=== PATIENT | female | born 1950 | race Caucasian/White ===

== ENCOUNTER 2019-09-23 19:28 | Inpatient (IN) | payer MEDICARE, OTHER ==
[2019-09-23] MEDS ORDERED: SODIUM CHLORIDE 0.9% 1,000 ML IV STA (19:40)
[2019-09-23] MEDS ORDERED: SODIUM CHLORIDE 0.9% 1,000 ML IV ONE (19:47)
[2019-09-23] MEDS ORDERED: ONDANSETRON 4 MG/2 ML VIAL IVP STA (19:54)
[2019-09-23 20:35] LABS: ALT 23 U/L (9-52); AST 23 U/L (14-36); African American GFR (CKD) >90 (>60 ml/min/1.73 sqM); Albumin 4.1 g/dL (3.5-5.0); Alkaline Phosphatase 101 U/L (38-126); Amylase 61 U/L (30-110); Anion Gap 14 mmol/L; Blood Urea Nitrogen 12 mg/dL (7-17); Carbon Dioxide 22 mmol/L (22-30); Chloride 102 mmol/L (98-107); Glucose 152 mg/dL (74-99); Potassium 3.6 mmol/L (3.5-5.1); Sodium 138 mmol/L (137-145); Total Bilirubin 0.7 mg/dL (0.2-1.3); Total Protein 7.2 g/dL (6.3-8.2)
[2019-09-23 20:38] LABS: Basophils % (A) 0 %; Eosinophils % (A) 0 %; HCT 40.8 % (34.0-46.0); HGB 14.1 gm/dL (11.4-16.0); Lymphocytes # (A) 0.7 k/uL (1.0-4.8); Lymphocytes % (A) 5 %; MCH 31.7 pg (25.0-35.0); MCHC 34.6 g/dL (31.0-37.0); MCV 91.7 fL (80.0-100.0); Mean Platelet Volume 5.6; Monocytes # (A) 0.6 k/uL (0-1.0); Monocytes % (A) 4 %; Neutrophils # (A) 12.7 k/uL (1.3-7.7); Neutrophils % (A) 90 %; Platelet Count 280 k/uL (150-450); RBC 4.45 m/uL (3.80-5.40); RDW 11.3 % (11.5-15.5); WBC 14.1 k/uL (3.8-10.6)
--- NOTE | 2019-09-23 20:43 | XR ---
EXAMINATION TYPE: XR chest 2V DATE OF EXAM: 09/23/2019 COMPARISON: NONE HISTORY: Nausea and vomiting TECHNIQUE: Frontal and lateral views of the chest are obtained. FINDINGS: Heart and mediastinum are normal. Lungs are clear. Diaphragm shows some flattening. There is slight blunting left costophrenic angle. Bony thorax is intact. IMPRESSION: There is some mild pleural reaction or fluid at the lateral left lung base. Normal heart .
--- NOTE | 2019-09-23 21:00 | ED ---
Nausea/Vomiting/Diarrhea HPI - General Chief complaint: Nausea/Vomiting/Diarrhea Stated complaint: poss dehydration Time Seen by Provider: 09/23/19 19:40 Source: patient Mode of arrival: ambulatory Limitations: no limitations - History of Present Illness Initial comments: 69-year-old fever presenting for vague complaints of epigastric discomfort, nausea vomiting times one day. Patient states that patient states about one week ago she felt ill she had chills and aches this lasted for 4 days. Patient states that she began feeling better eating and drinking and no longer felt general malaise. Patient states at 10:30 PM last night she began to develop indigestion she states she did epigastric discomfort. She denies any fevers leg swelling chest pain shortness of breath back pain denies any lower abdominal pain melena hematochezia. Patient states she has had some loose stools and had 4 episodes of vomiting today. Patient states she was concerned she is dehydrated as well as concerned about the epigastric pain and presented to the ER for evaluation. Upon arrival patient VS stable, nontoxic appearing no acute distress. - Related Data Home Medications Medication Instructions Recorded Confirmed Ibuprofen [Advil] 200 mg PO Q8HR PRN 09/23/19 09/23/19 Levothyroxine Sodium 25 mcg PO DAILY 09/23/19 09/23/19 Losartan [Cozaar] 25 mg PO DAILY 09/23/19 09/23/19 Allergies Allergy/AdvReac Type Severity Reaction Status Date / Time No Known Allergies Allergy Verified 09/23/19 22:11 Review of Systems ROS Statement: Those systems with pertinent positive or pertinent negative responses have been documented in the HPI. ROS Other: All systems not noted in ROS Statement are negative. Past Medical History Past Medical History: Hypertension, Thyroid Disorder History of Any Multi-Drug Resistant Organisms: None Reported Past Surgical History: Hysterectomy Additional Past Surgical History / Comment(s): left lumpectomy Past Psychological History: No Psychological Hx Reported Smoking Status: Never smoker Past Alcohol Use History: Occasional Past Drug Use History: None Reported General Exam - General Exam Comments Initial Comments: General: The patient is awake and alert, in no distress Eye: +3 mm pupils are equal, round and reactive to light, extra-ocular movements are intact. No nystagmus. There is normal conjunctiva bilaterally. No signs of icterus. Ears, nose, mouth and throat: There are moist mucous membranes and no oral lesions. Neck: The neck is supple, there is no tenderness or JVD. Cardiovascular: There is a regular rate and rhythm. No murmur, rub or gallop is appreciated. Respiratory: Lungs are clear to auscultation, respirations are non-labored, breath sounds are equal. No wheezes, stridor, rales, or rhonchi. Gastrointestinal: Soft, non-distended, mild tenderness to palpation of the epigastric and upper quadrants of the abdomen, the remaining abdomen is without tenderness, masses or organomegaly noted. There is no rebound or guarding present. No CVA tenderness. Bowel sounds are unremarkable. Musculoskeletal: Normal ROM, no tenderness. Strength 5/5. Sensation intact. Radial pulses equal bilaterally 2+. Neurological: A&O x 3. CN II-XII intact grossly, There are no obvious motor or sensory deficits. Coordination appears grossly intact. Speech is normal. Skin: Skin is warm and dry and no rashes or lesions are noted. No LE edema. Psychiatric: Cooperative, appropriate mood & affect, normal judgment. Limitations: no limitations Course Vital Signs 09/23/19 09/23/19 09/23/19 19:34 20:00 20:45 Temperature 97.9 F Pulse Rate 92 98 94 Pulse Rate [ Pulse Oximetery ] Respiratory 18 19 19 Rate Blood Pressure 144/85 173/89 168/76 Blood Pressure [Left Arm] O2 Sat by Pulse 96 98 97 Oximetry 09/23/19 09/23/19 22:47 23:00 Temperature 99.2 F Pulse Rate 99 Pulse Rate [ 85 Pulse Oximetery ] Respiratory 18 19 Rate Blood Pressure 176/86 Blood Pressure 183/79 [Left Arm] O2 Sat by Pulse 98 97 Oximetry Medical Decision Making - Medical Decision Making 61 female presenting for vague epigastric pain, vomiting loose stools. General malaise 4 days ago. Afebrile on arrival. Lipase (-). Chest x-ray reveals a pleural reaction. Mild elevation of troponin. EKG no St elevation/depression, nonspecific findings. Findings on ultrasound consistent with possible cholecystitis however patient has no Calles sign. Patient did have vomiting and diarrhea today elevation of white blood cell count. I discussed the case in detail and at length my attending provider, at this time is unclear patient's symptomology is from abdominal source or atypical chest pain vs viral syndrome affecting the myocardium. Patient was initially stared on heparin, however order cancelled by attending pending cardiology/admitting provider recommendation. Will trend troponin. Patient started on rocephin. Patient remains stable. No chest pain. Surgery on consult, patient wants Dr. Fuentes, refuses other surgeons. Patient admitted appearing well, discussing ddx, care plan--she is agreeable. - Lab Data Result diagrams: 09/23/19 20:11 09/23/19 20:11 Lab Results 09/23/19 09/23/19 09/23/19 Range/Units 20:11 20:11 20:11 WBC 14.1 H (3.8-10.6) k/uL RBC 4.45 (3.80-5.40) m/uL Hgb 14.1 (11.4-16.0) gm/dL Hct 40.8 (34.0-46.0) % MCV 91.7 (80.0-100.0) fL MCH 31.7 (25.0-35.0) pg MCHC 34.6 (31.0-37.0) g/dL RDW 11.3 L (11.5-15.5) % Plt Count 280 (150-450) k/uL Neutrophils % 90 % Lymphocytes % 5 % Monocytes % 4 % Eosinophils % 0 % Basophils % 0 % Neutrophils # 12.7 H (1.3-7.7) k/uL Lymphocytes # 0.7 L (1.0-4.8) k/uL Monocytes # 0.6 (0-1.0) k/uL Eosinophils # 0.0 (0-0.7) k/uL Basophils # 0.0 (0-0.2) k/uL PT (9.0-12.0) sec INR (<1.2) APTT (22.0-30.0) sec Sodium 138 (137-145) mmol/L Potassium 3.6 (3.5-5.1) mmol/L Chloride 102 (98-107) mmol/L Carbon Dioxide 22 (22-30) mmol/L Anion Gap 14 mmol/L BUN 12 (7-17) mg/dL Creatinine 0.43 L (0.52-1.04) mg/dL Est GFR (CKD-EPI)AfAm >90 (>60 ml/min/1.73 sqM) Est GFR (CKD-EPI)NonAf >90 (>60 ml/min/1.73 sqM) Glucose 152 H (74-99) mg/dL Calcium 9.0 (8.4-10.2) mg/dL Total Bilirubin 0.7 (0.2-1.3) mg/dL AST 23 (14-36) U/L ALT 23 (9-52) U/L Alkaline Phosphatase 101 (38-126) U/L Troponin I 0.039 H* (0.000-0.034) ng/mL Total Protein 7.2 (6.3-8.2) g/dL Albumin 4.1 (3.5-5.0) g/dL Amylase 61 (30-110) U/L Lipase 75 (23-300) U/L Urine Color Urine Appearance (Clear) Urine pH (5.0-8.0) Ur Specific Imperial (1.001-1.035) Urine Protein (Negative) Urine Glucose (UA) (Negative) Urine Ketones (Negative) Urine Blood (Negative) Urine Nitrite (Negative) Urine Bilirubin (Negative) Urine Urobilinogen (<2.0) mg/dL Ur Leukocyte Esterase (Negative) Urine RBC (0-5) /hpf Urine WBC (0-5) /hpf Urine Mucus (None) /hpf 09/23/19 09/23/19 Range/Units 20:11 21:22 WBC (3.8-10.6) k/uL RBC (3.80-5.40) m/uL Hgb (11.4-16.0) gm/dL Hct (34.0-46.0) % MCV (80.0-100.0) fL MCH (25.0-35.0) pg MCHC (31.0-37.0) g/dL RDW (11.5-15.5) % Plt Count (150-450) k/uL Neutrophils % % Lymphocytes % % Monocytes % % Eosinophils % % Basophils % % Neutrophils # (1.3-7.7) k/uL Lymphocytes # (1.0-4.8) k/uL Monocytes # (0-1.0) k/uL Eosinophils # (0-0.7) k/uL Basophils # (0-0.2) k/uL PT 9.9 (9.0-12.0) sec INR 0.9 (<1.2) APTT 24.0 (22.0-30.0) sec Sodium (137-145) mmol/L Potassium (3.5-5.1) mmol/L Chloride (98-107) mmol/L Carbon Dioxide (22-30) mmol/L Anion Gap mmol/L BUN (7-17) mg/dL Creatinine (0.52-1.04) mg/dL Est GFR (CKD-EPI)AfAm (>60 ml/min/1.73 sqM) Est GFR (CKD-EPI)NonAf (>60 ml/min/1.73 sqM) Glucose (74-99) mg/dL Calcium (8.4-10.2) mg/dL Total Bilirubin (0.2-1.3) mg/dL AST (14-36) U/L ALT (9-52) U/L Alkaline Phosphatase (38-126) U/L Troponin I (0.000-0.034) ng/mL Total Protein (6.3-8.2) g/dL Albumin (3.5-5.0) g/dL Amylase (30-110) U/L Lipase (23-300) U/L Urine Color Colorless Urine Appearance Clear (Clear) Urine pH 6.0 (5.0-8.0) Ur Specific Imperial 1.004 (1.001-1.035) Urine Protein Trace H (Negative) Urine Glucose (UA) Negative (Negative) Urine Ketones 1+ H (Negative) Urine Blood Moderate H (Negative) Urine Nitrite Negative (Negative) Urine Bilirubin Negative (Negative) Urine Urobilinogen <2.0 (<2.0) mg/dL Ur Leukocyte Esterase Negative (Negative) Urine RBC 29 H (0-5) /hpf Urine WBC 1 (0-5) /hpf Urine Mucus Rare H (None) /hpf - EKG Data EKG Comments: Ventricular rate 86 bpm, UT interval 132 ms, QRS confucianist 90 ms, QTC is QTC 410/490 ms. Normal sinus rhythm. T-wave flattening in lead ,[address] elevation or depression, QT prolongation noted EKG person interpreted and reviewed by my attending provider Disposition Clinical Impression: Elevated troponin, NSTEMI (non-ST elevated myocardial infarction), Nausea & vomiting, Epigastric discomfort Disposition: ADMITTED IP TO THIS HOSP Condition: Stable Is patient prescribed a controlled substance at d/c from ED?: No Time of Disposition: 21:19 Decision to Admit Reason: Admit from EC Decision Date: 09/23/19 Decision Time: 21:19
[2019-09-23] MEDS ORDERED: HEPARIN SODIUM,PORCINE 5,000 UNIT/ML 1 ML VIAL IV ONE (21:17)
[2019-09-23] MEDS ORDERED: HEPARIN SODIUM,PORCINE 5,000 UNIT/ML 1 ML VIAL IV PRN (21:17)
[2019-09-23] MEDS ORDERED: NITROGLYCERIN SL TABS 0.4 MG TAB SUBLINGUAL PRN ×2 (21:19→22:27)
[2019-09-23] MEDS ORDERED: HEPARIN SOD,PORK IN 0.45% NACL 25,000 UNIT in 0.45% NACL 1 250ML.BAG IV SCH (21:30)
[2019-09-23 21:39] LABS: INR 0.9 (<1.2); Prothrombin Time 9.9 sec (9.0-12.0)
[2019-09-23] MEDS ORDERED: ASPIRIN 325 MG TAB PO SCH (21:39)
--- NOTE | 2019-09-23 21:48 | US ---
EXAMINATION TYPE: US abdomen limited DATE OF EXAM: 09/23/2019 COMPARISON: NONE CLINICAL HISTORY: epigastric discomfort. Epigastric pain x 1 day. HTN. EXAM MEASUREMENTS: Liver Length: 14.0 cm Gallbladder Wall: 0.27 cm CBD: 0.66 cm Right Kidney: 10.6 x 4.8 x 5.3 cm *Limited due to gas Pancreas: appears wnl Liver: appears wnl Gallbladder: Multiple hyperechoic areas with posterior shadowing seen within the posterior portion o f the gallbladder. Gallbladder measures 9.45 cm in length. Evidence for sonographic Calles's sign: no CBD: appears to measure upper limits of normal vs. slightly dilated Right Kidney: Renal pelvis appears prominent vs minimal hydronephrosis IMPRESSION: There are numerous small gallstones. No dilated ducts. Mild gallbladder wall prominence. Gallbladder measures 4 cm in diameter. Cholecystitis is possible. Possible minimal right-sided hydronephrosis. No free fluid.
[2019-09-23] MEDS: SODIUM CHLORIDE 0.9% 1,000 ML IV SCH (22:09)
[2019-09-23 22:20] LABS: Appearance,Urine Clear (Clear); Bilirubin,Urine Negative (Negative); Blood,Urine Moderate (Negative); Color,Urine Colorless; Glucose,Urine (UA) Negative (Negative); Ketones,Urine 1+ (Negative); Leukocyte Esterase,Urine Negative (Negative); Mucus,Urine Rare /hpf; Nitrite,Urine Negative (Negative); Protein,Urine Trace (Negative); RBC,Urine 29 /hpf (0-5); Specific Gravity,Urine 1.004 (1.001-1.035); Urobilinogen,Urine <2.0 mg/dL (<2.0); WBC,Urine 1 /hpf (0-5)
[2019-09-23] MEDS ORDERED: ASPIRIN 81 MG PO STA (22:27)
[2019-09-24 03:01] LABS: Cholesterol 153 mg/dL (<200); HDL Cholesterol 52 mg/dL (40-60); LDL Cholesterol,Calculated 91 mg/dL (0-99); Triglycerides 48 mg/dL (<150)
[2019-09-24] MEDS: SODIUM CHLORIDE 0.9% 1,000 ML IV SCH ×3 (04:43→12:46)
[2019-09-24] MEDS: ASPIRIN 325 MG TAB PO SCH (08:25)
[2019-09-24] MEDS ORDERED: ASPIRIN 325 MG TAB PO SCH (09:00)
--- NOTE | 2019-09-24 09:07 | P.CRDCN ---
History of Present Illness Consult date: 09/24/19 Requesting physician: Dung Olguin Consult reason: chest pain Chief complaint: Epigastric discomfort and nausea History of present illness: This is a pleasant 69-year-old female with history of hypertension, hypothyroidism, nondiabetic, nonsmoker, no family history of premature coronary artery disease, presents to the hospital with symptoms of epigastric discomfort with radiation to the back area. Patient states that a week ago Saturday she had generalized aches and malaise, states that she stayed in bed for approximately 4 days. She had recovered from this, was eating normally. She states that she developed a discomfort in her mid epigastric area that radiated around to her back, subsequently patient became diaphoretic and had an episode of vomiting. She came to the emergency room for further evaluation and treatment. Approximately 2 years ago, as patient states she had very similar symptoms but also had an associated pressure and heaviness in the chest at that time, she went to [facility], states that she had a workup done there and everything came back negative. Patient also in between that time has had one minor similar episodes to this. Chest x-ray on presentation here showed some mild pleural reaction or fluid in the lateral left lung base. does have some tenderness on exam in the right upper quadrant and for this reason she underwent an ultrasound of the abdomen which revealed numerous small gallstones. No dilated ducts. Mild gallbladder wall prominence. Gallbladder measures 4 cm in diameter. Cholecystitis is possible. Possible minimal right-sided hydronephrosis. Her initial EKG on presentation here showed a normal sinus r hythm with nonspecific T-wave abnormality. Subsequent EKG showed normal sinus rhythm with T wave changes noted in the inferior leads and mild ST depression in the lateral leads. Blood pressure on arrival here 140/80 with a heart rate of 90, 96% on room air. I pressure this morning 150/68 with a heart rate in the 80s, 94% on room air. White blood cell count 14.1, hemoglobin 14.1, platelet count 280. Sodium 138, potassium 3.6, BUN 12 and creatinine 0.4. Troponins 0.039, 0.047, 0.034, 0.026. Amylase, lipase, AST, ALT, and alk phos are all normal. Cholesterol 153, LDL 91, triglycerides 48, HDL 52. Past Medical History Past Medical History: Hypertension, Thyroid Disorder History of Any Multi-Drug Resistant Organisms: None Reported Past Surgical History: Hysterectomy Additional Past Surgical History / Comment(s): left lumpectomy Past Psychological History: No Psychological Hx Reported Smoking Status: Never smoker Past Alcohol Use History: Occasional Past Drug Use History: None Reported Medications and Allergies Home Medications Medication Instructions Recorded Confirmed Type Ibuprofen [Advil] 200 mg PO Q8HR PRN 09/23/19 09/23/19 History Levothyroxine Sodium 25 mcg PO DAILY 09/23/19 09/23/19 History Losartan [Cozaar] 25 mg PO DAILY 09/23/19 09/23/19 History Allergies Allergy/AdvReac Type Severity Reaction Status Date / Time No Known Allergies Allergy Verified 09/23/19 22:11 Physical Exam Vitals: Vital Signs Temp Pulse Pulse Resp BP BP BP 09/24/19 08:00 98.8 F 88 16 150/69 09/24/19 03:43 98 F 88 18 175/72 09/23/19 23:00 99 19 176/86 09/23/19 22:47 99.2 F 85 18 183/79 09/23/19 20:45 94 19 168/76 09/23/19 20:00 98 19 173/89 09/23/19 19:34 97.9 F 92 18 144/85 Pulse Ox 09/24/19 08:00 94 L 09/24/19 03:43 97 09/23/19 23:00 97 09/23/19 22:47 98 09/23/19 20:45 97 09/23/19 20:00 98 09/23/19 19:34 96 Intake and Output 09/23/19 09/24/19 09/24/19 22:59 06:59 14:59 Intake Total 0 Output Total 700 Balance -700 0 Intake: Oral 0 Output: Urine 700 Other: Voiding Method Toilet # Voids 2 0 # Bowel Movements 0 Weight 55.792 kg 55.1 kg PHYSICAL EXAMINATION: GENERAL: 69-year-old female in no acute distress at the time of my examination HEENT: Head is atraumatic, normocephalic. Pupils equal, round. Sclera anict miky. Conjunctiva are clear. Mucous membranes of the mouth are moist. Neck is supple. There is no elevated jugular venous pressure. No carotid bruit is heard. HEART EXAMINATION: Heart S1, S2 normal. No murmur or gallop heard. CHEST EXAMINATION: Lungs are clear to auscultation and precussion. No chest wall tenderness is noted on palpation or with deep breathing. ABDOMEN: Soft, mild right upper quadrant tenderness on exam . Bowel sounds are heard. No organomegaly noted. EXTREMITIES: 2+ peripheral pulses with no evidence of peripheral edema and no calf tenderness noted. NEUROLOGIC patient is awake, alert and oriented 3 . . Results 09/23/19 20:11 09/23/19 20:11 Cardiac Enzymes 09/23/19 09/23/19 09/23/19 Range/Units 20:11 20:11 22:59 AST 23 (14-36) U/L Troponin I 0.039 H* 0.047 H* (0.000-0.034) ng/mL 09/24/19 09/24/19 Range/Units 02:32 07:52 AST (14-36) U/L Troponin I 0.034 0.026 (0.000-0.034) ng/mL Coagulation 09/23/19 Range/Units 20:11 PT 9.9 (9.0-12.0) sec APTT 24.0 (22.0-30.0) sec Lipids 09/24/19 Range/Units 02:32 Triglycerides 48 (<150) mg/dL Cholesterol 153 (<200) mg/dL HDL Cholesterol 52 (40-60) mg/dL CBC 09/23/19 Range/Units 20:11 WBC 14.1 H (3.8-10.6) k/uL RBC 4.45 (3.80-5.40) m/uL Hgb 14.1 (11.4-16.0) gm/dL Hct 40.8 (34.0-46.0) % Plt Count 280 (150-450) k/uL Comprehensive Metabolic Panel 09/23/19 Range/Units 20:11 Sodium 138 (137-145) mmol/L Potassium 3.6 (3.5-5.1) mmol/L Chloride 102 (98-107) mmol/L Carbon Dioxide 22 (22-30) mmol/L BUN 12 (7-17) mg/dL Creatinine 0.43 L (0.52-1.04) mg/dL Glucose 152 H (74-99) mg/dL Calcium 9.0 (8.4-10.2) mg/dL AST 23 (14-36) U/L ALT 23 (9-52) U/L Alkaline Phosphatase 101 (38-126) U/L Total Protein 7.2 (6.3-8.2) g/dL Albumin 4.1 (3.5-5.0) g/dL Current Medications Generic Name Dose Route Start Last Admin Trade Name Freq PRN Reason Stop Dose Admin Aspirin 325 mg 09/24/19 09:00 09/24/19 08:25 Aspirin PO 325 mg DAILY SHEFALI Administration Sodium Chloride 1,000 mls @ 100 mls/hr 09/23/19 20:00 09/24/19 08:27 Saline 0.9% IV 100 mls/hr .Q10H SHEFALI Administration Levothyroxine Sodium 25 mcg 09/24/19 09:00 Synthroid PO 0630 SHEFALI Losartan Potassium 25 mg 09/24/19 09:00 Cozaar PO DAILY SHEFALI Nitroglycerin 0.4 mg 09/23/19 22:27 Nitrostat SUBLINGUAL Q5M PRN Chest Pain Intake and Output 09/23/19 09/24/19 09/24/19 22:59 06:59 14:59 Intake Total 0 Output Total 700 Balance -700 0 Intake: Oral 0 Output: Urine 700 Other: Voiding Method Toilet # Voids 2 0 # Bowel Movements 0 Weight 55.792 kg 55.1 kg 09/23/19 20:11 09/23/19 20:11 EKG Interpretations (text) EKG shows a normal sinus rhythm with nonspecific ST-T wave changes Assessment and Plan Plan: Assessment and plan #1 chest discomfort with associated diaphoresis and vomiting, rule out possible acute coronary syndrome, possible myocarditis, possible cholecystitis. #2 hypertension #3 hypothyroidism Plan Ultrasound of the abdomen was performed which revealed numerous small gallstones with no dilated ducts, mild gallbladder wall, prominence, gallbladder measures 4 cm in diameter. Possible cholecystitis. AST, ALT, alk phos, amylase and lipase are normal. We will obtain an echocardiogram with Doppler study. Patient may need to undergo cardiac catheterization for further evaluation and treatment of underlying coronary artery disease. Further recommendations to follow. DNP note has been reviewed, I agree with a documented findings and plan of care. Patient was seen and examined.
[2019-09-24] MEDS ORDERED: SODIUM CHLORIDE 0.9% 1,000 ML in EMPTY BAG 1 BAG IV ONE (09:37)
[2019-09-24] MEDS ORDERED: ASPIRIN 325 MG TAB PO STA (09:37)
[2019-09-24] MEDS ORDERED: NITROGLYCERIN SL TABS 0.4 MG TAB SUBLINGUAL PRN (09:37)
[2019-09-24] MEDS ORDERED: ATORVASTATIN 80 MG TAB PO STA (09:37)
[2019-09-24] MEDS ORDERED: ALPRAZolam 0.5 MG TAB PO PRN (09:37)
[2019-09-24] MEDS ORDERED: ALPRAZolam 0.25 MG TAB PO PRN (09:37)
[2019-09-24] MEDS ORDERED: VERAPAMIL 2.5 MG/ML 2 ML AMP ONE (10:55)
[2019-09-24] MEDS ORDERED: LIDOCAINE 1% INJ 10MG/ML (20 ML MDV) ONE (10:55)
[2019-09-24] MEDS ORDERED: fentaNYL (PF) 50 MCG/ML 2 ML AMP ONE (11:24)
--- NOTE | 2019-09-24 11:32 | ECHOF ---
Referral Reason:abn trop MEASUREMENTS -------- HEIGHT: 162.6 cm WEIGHT: 54.9 kg BP: 150/69 RVIDd: 2.8 cm (< 3.3) IVSd: 0.9 cm (0.6 - 1.1) LVIDd: 3.9 cm (3.9 - 5.3) LVPWd: 1.0 cm (0.6 - 1.1) IVSs: 1.6 cm LVIDs: 1.8 cm LVPWs: 1.6 cm LAESV Index (A-L): 23.09 ml/m Ao Diam: 2.5 cm (2.0 - 3.7) AV Cusp: 1.8 cm (1.5 - 2.6) MV EXCURSION: 14.414 mm (> 18.000) MV EF SLOPE: 73 mm/s (70 - 150) EPSS: 0.2 cm MV E Jaciel: 0.74 m/s MV DecT: 138 ms MV A Jaciel: 0.74 m/s MV E/A Ratio: 0.99 AR PHT: 590 ms RAP: 5.00 mmHg RVSP: 37.26 mmHg FINDINGS -------- Sinus rhythm. This was a technically good study. The left ventricular size is normal. Left ventricular wall thickness is normal. There is normal g lobal left ventricular contractility. Overall left ventricular systolic function is normal with, an EF between 65 - 70 %. The diastolic filling pattern is normal for the age of the patient 12.02. The right ventricle is normal in size. Normal LA size by volume 22+/-6 ml/m2. RA appears enlarged. Interatrial and interventricular septum intact. The aortic valve is trileaflet and appears structurally normal. There is mild aortic regurgitation. There is no evidence of aortic stenosis. Mild mitral regurgitation is present. Mild tricuspid regurgitation present. There is mild pulmonary hypertension. The right ventricular systolic pressure, as measured by Doppler, is 37.26mmHg. There is no pulmonic regurgitation present. The aortic root size is normal. The hepatic veins are normal. There is no pericardial effusion. CONCLUSIONS -------- 1. Sinus rhythm. 2. This was a technically good study. 3. The left ventricular size is normal. 4. Left ventricular wall thickness is normal. 5. There is normal global left ventricular contractility. 6. Overall left ventricular systolic function is normal with, an EF between 65 - 70 %. 7. The diastolic filling pattern is normal for the age of the patient 12.02 8. The right ventricle is normal in size. 9. Normal LA size by volume 22+/-6 ml/m2. 10. RA appears enlarged. 11. Interatrial and interventricular septum intact. 12. The aortic valve is trileaflet and appears structurally normal. 13. There is mild aortic regurgitation. 14. There is no evidence of aortic stenosis. 15. Mild mitral regurgitation is present. 16. Mild tricuspid regurgitation present. 17. There is mild pulmonary hypertension. 18. The right ventricular systolic pressure, as measured by Doppler, is 37.26mmHg. 19. There is no pulmonic regurgitation present. 20. The aortic root size is normal. 21. The hepatic veins are normal. 22. There is no pericardial effusion. PERSONAL INVESTMENT ADVISER: Vicki Negrete RDCS
[2019-09-24] MEDS ORDERED: fentaNYL (PF) 50 MCG/ML 2 ML AMP IVP ONE (11:47)
[2019-09-24] MEDS ORDERED: HEPARIN SODIUM 1,000 UN/ML (10ML VL) ONE (11:47)
[2019-09-24] MEDS ORDERED: IV FLUID CONTINUATION 1,000 ML IV ONE (11:48)
[2019-09-24] MEDS ORDERED: MIDAZOLAM 2 MG/2 ML VIAL IVP ONE (11:48)
[2019-09-24] MEDS ORDERED: LIDOCAINE 1% INJ 10MG/ML (20 ML MDV) SQ ONE (11:50)
[2019-09-24] MEDS ORDERED: VERAPAMIL SYRINGE (5 MG/10 ML) INTRAARTER ONE (11:52)
[2019-09-24 11:54] LABS: Basophils # (A) 0.2 k/uL (0-0.2); Basophils % (A) 1 %; Eosinophils % (A) 0 %; HCT 39.8 % (34.0-46.0); Lymphocytes # (A) 1.1 k/uL (1.0-4.8); Lymphocytes % (A) 7 %; MCH 31.4 pg (25.0-35.0); MCHC 32.7 g/dL (31.0-37.0); Monocytes # (A) 0.8 k/uL (0-1.0); Monocytes % (A) 5 %; Neutrophils # (A) 13.9 k/uL (1.3-7.7); Neutrophils % (A) 87 %; Platelet Count 302 k/uL (150-450); RBC 4.14 m/uL (3.80-5.40); RDW 11.7 % (11.5-15.5)
[2019-09-24] MEDS ORDERED: HEPARIN SODIUM 1,000 UN/ML (10ML VL) IV ONE (11:54)
[2019-09-24] MEDS ORDERED: RX INFO: IV CONTRAST WAS GIVEN 1 EACH MISC MISCELLANE PRN (12:07)
[2019-09-24] MEDS ORDERED: IOPAMIDOL-370 125ML BTL INJ ONE (12:11)
--- NOTE | 2019-09-24 12:12 | P.CARDCATH ---
Date of Procedure: 09/24/19 Preoperative Diagnosis: Abnormal troponin and EKG, rule out ischemic heart disease Postoperative Diagnosis: Normal coronary arteries Procedure(s) Performed: Left heart catheterization without left ventriculography Description of Procedure: HISTORY: This is a 69-year-old female was admitted to the hospital with abdominal pain and was noted to have abnormal troponin values and EKGs. A cardiac catheterization is requested to rule out underlying ischemic heart disease. CONSENT:I have discussed the risks, benefits and alternative therapies for the above-mentioned procedure and for both sedation/analgesia as well as necessary blood product administration, if indicated, as they pertain to this patient. The patient has indicated understanding and acceptance of the risks and procedures discussed. PROCEDURE: Patient was brought to the lab in a fasting state. Patient was given some IV sedation. The right wrist is infiltrated with lidocaine and right radial artery was entered using Seldinger technique. A 6-Pashto catheter was left in place and selective coronary arteriography was performed. Patient tolerated the procedure well. TR band was applied for hemostasis. No immediate complications were noted and patient was transferred to [facility] in a stable condition Conscious Sedation: Versed 1mg Fentanyl 50 g Duration 17minutes HEMODYNAMICS: The aortic pressure is 110/70. The left ventricle end-diastolic p ressure was 8. There was no gradient across the aortic valve SELECTIVE CORONARY ARTERIOGRAPHY: LEFT MAIN: Normal length and free of any occlusive disease THE LEFT ANTERIOR DESCENDING CORONARY ARTERY:. This is a good caliber vessel giving rise to see several diagonal and septal branches. The LAD and branches are free of occlusive disease THE LEFT CIRCUMFLEX AND IS CORONARY ARTERY:. This is a good caliber vessel giving rise to good-sized OM branch. Free of any occlusive disease THE RIGHT CORONARY ARTERY:. This is a dominant vessel free of any occlusive disease LEFT VENTRICULOGRAPHY:. Not performed FINAL IMPRESSION:, Normal coronary arteries. Normal end-diastolic pressure PLAN: Maximum medical therapy. Further evaluation and treatment of abdominal pain as per surgeon PROGNOSIS: Good
[2019-09-24] MEDS: LEVOTHYROXINE 25 MCG TAB PO SCH (12:45)
[2019-09-24] MEDS: LOSARTAN 25 MG TAB PO SCH (12:45)
--- NOTE | 2019-09-24 13:47 | P.GSCN ---
<Patsy Karimi - Last Filed: 09/24/19 13:46> History of Present Illness Consult date: 09/24/19 Reason for Consult: Epigastric discomfort Requesting physician: Nallely Samaniego History of present illness: CHIEF COMPLAINT: Epigastric discomfort HISTORY OF PRESENT ILLNESS: 69-year-old female who presented to the emergency room with a chief complaint of epigastric discomfort. Patient states she has been having flulike symptoms over the past week. Yesterday she began having pain below bilateral ribs that radiated to her back. She reports nausea and vomiting yesterday. She also had some diarrhea yesterday. Patient examined this morning at the bedside. She currently is complaining of right upper quadrant pain. Nausea and vomiting have resolved. She reports having intolerance to fatty or greasy foods. PAST MEDICAL HISTORY: See list. PAST SURGICAL HISTORY: See list. SOCIAL HISTORY: No illicit drug use. REVIEW OF SYSTEMS: CONSTITUTIONAL: Denies fever or chills. HEENT: Denies blurred vision, vision changes, or eye pain. Denies hemoptysis CARDIOVASCULAR: Denies chest pain or pressure. RESPIRATORY: No shortness of breath. GASTROINTESTINAL: Refer to HPI for pertinent findings HEMATOLOGIC: Denies bleeding disorders. GENITOURINARY: Denies any blood in urine. SKIN: Denies pruitis. Denies rash. PHYSICAL EXAM: VITAL SIGNS: Reviewed. GENERAL: Well-developed in no acute distress. HEENT: No sclera icterus. Extraocular movements grossly intact. Moist buccal mucosa. Head is atraumatic, normocephalic. ABDOMEN: Soft. Nondistended. Tenderness with palpation to right upper quadrant. No peritoneal signs. NEUROLOGIC: Alert and oriented. Cranial nerves II through XII grossly intact. LABORATORY DATA: WBC 14.1. Hemoglobin 14.1. Platelet count 280. Total bilirubin 0.7. AST 23. ALT 23. IMAGING: Abdominal ultrasound: Numerous small gallstones. No dilated ducts. Mild gallbladder prominence. Gallbladder measures 4 cm in diameter. Cholecystitis is possible. ASSESSMENT: 1. Abdominal pain, nausea, vomiting 2. Cholelithiasis, possible cholecystitis 3. Elevated troponins PLAN: -Notified by Eladia Forde, cardiology DOUPER, that they would like to perform cardiac catheterization on patient this afternoon. She states they would like to know if Dr. Fuentes is wanting to do any intervention with patients gallbladder prior to cardiac cath. Patient examined at the bedside and case discussed with Dr. Fuentes. No surgical intervention for gallbladder at this time until cleared by cardiology. Agree to proceed with cardiac cath today. Notified Eladia Forde who states patient will be scheduled for cardiac cath this afternoon. -Begin Zosyn. Monitor WBC -After cardiac cath, recommend low fat diet -Further recommendations pending Nurse practitioner note has been reviewed by physician. Signing provider agrees with the documented findings, assessment, and plan of care. Past Medical History Past Medical History: Hypertension, Thyroid Disorder History of Any Multi-Drug Resistant Organisms: None Reported Past Surgical History: Hysterectomy Additional Past Surgical History / Comment(s): left lumpectomy Past Psychological History: No Psychological Hx Reported Smoking Status: Never smoker Past Alcohol Use History: Occasional Past Drug Use History: None Reported Medications and Allergies Home Medications Medication Instructions Recorded Confirmed Type Ibuprofen [Advil] 200 mg PO Q8HR PRN 09/23/19 09/23/19 History Levothyroxine Sodium 25 mcg PO DAILY 09/23/19 09/23/19 History Losartan [Cozaar] 25 mg PO DAILY 09/23/19 09/23/19 History Allergies Allergy/AdvReac Type Severity Reaction Status Date / Time No Known Allergies Allergy Verified 09/23/19 22:11 Surgical - Exam Vital Signs Temp Pulse Resp BP Pulse Ox 97.9 F 92 18 144/85 96 09/23/19 19:34 09/23/19 19:34 09/23/19 19:34 09/23/19 19:34 09/23/19 19:34 Results - Labs 09/24/19 02:32 09/23/19 20:11 Abnormal Lab Results - Last 24 Hours (Table) 09/23/19 09/23/19 09/23/19 Range/Units 20:11 20:11 20:11 WBC 14.1 H (3.8-10.6) k/uL RDW 11.3 L (11.5-15.5) % Neutrophils # 12.7 H (1.3-7.7) k/uL Lymphocytes # 0.7 L (1.0-4.8) k/uL Creatinine 0.43 L (0.52-1.04) mg/dL Glucose 152 H (74-99) mg/dL Troponin I 0.039 H* (0.000-0.034) ng/mL Urine Protein (Negative) Urine Ketones (Negative) Urine Blood (Negative) Urine RBC (0-5) /hpf Urine Mucus (None) /hpf 09/23/19 09/23/19 09/24/19 Range/Units 21:22 22:59 02:32 WBC 16.0 H (3.8-10.6) k/uL RDW (11.5-15.5) % Neutrophils # 13.9 H (1.3-7.7) k/uL Lymphocytes # (1.0-4.8) k/uL Creatinine (0.52-1.04) mg/dL Glucose (74-99) mg/dL Troponin I 0.047 H* (0.000-0.034) ng/mL Urine Protein Trace H (Negative) Urine Ketones 1+ H (Negative) Urine Blood Moderate H (Negative) Urine RBC 29 H (0-5) /hpf Urine Mucus Rare H (None) /hpf Diabetes panel 09/23/19 09/24/19 Range/Units 20:11 02:32 Sodium 138 (137-145) mmol/L Potassium 3.6 (3.5-5.1) mmol/L Chloride 102 (98-107) mmol/L Carbon Dioxide 22 (22-30) mmol/L BUN 12 (7-17) mg/dL Creatinine 0.43 L (0.52-1.04) mg/dL Glucose 152 H (74-99) mg/dL Calcium 9.0 (8.4-10.2) mg/dL AST 23 (14-36) U/L ALT 23 (9-52) U/L Alkaline Phosphatase 101 (38-126) U/L Total Protein 7.2 (6.3-8.2) g/dL Albumin 4.1 (3.5-5.0) g/dL Triglycerides 48 (<150) mg/dL HDL Cholesterol 52 (40-60) mg/dL Calcium panel 09/23/19 Range/Units 20:11 Calcium 9.0 (8.4-10.2) mg/dL Albumin 4.1 (3.5-5.0) g/dL Pituitary panel 09/23/19 Range/Units 20:11 Sodium 138 (137-145) mmol/L Potassium 3.6 (3.5-5.1) mmol/L Chloride 102 (98-107) mmol/L Carbon Dioxide 22 (22-30) mmol/L BUN 12 (7-17) mg/dL Creatinine 0.43 L (0.52-1.04) mg/dL Glucose 152 H (74-99) mg/dL Calcium 9.0 (8.4-10.2) mg/dL Adrenal panel 09/23/19 Range/Units 20:11 Sodium 138 (137-145) mmol/L Potassium 3.6 (3.5-5.1) mmol/L Chloride 102 (98-107) mmol/L Carbon Dioxide 22 (22-30) mmol/L BUN 12 (7-17) mg/dL Creatinine 0.43 L (0.52-1.04) mg/dL Glucose 152 H (74-99) mg/dL Calcium 9.0 (8.4-10.2) mg/dL Total Bilirubin 0.7 (0.2-1.3) mg/dL AST 23 (14-36) U/L ALT 23 (9-52) U/L Alkaline Phosphatase 101 (38-126) U/L Total Protein 7.2 (6.3-8.2) g/dL Albumin 4.1 (3.5-5.0) g/dL <Tej Fuentes - Last Filed: 09/24/19 18:38> History of Present Illness History of present illness: As above. Patient presents after having an episode 10 days ago where she experienced chills fatigue and anorexia for a four-day stretch. She said she started to feel better when her symptoms recurred earlier this week along with upper abdominal pain/indigestion. Pain radiated initially to the left upper qu adrant and the left side of her waist. It also became substernal at one point. White blood cell count elevated. Troponins were also elevated. Patient underwent cardiac workup including cardiac catheterization which was normal. Ultrasound showed gallstones and possibly gallbladder wall thickening. She says she has had 2 episodes similar to this in the past although not so severe. She is tender in the right mid abdomen on examination. Currently she has a tray of solid food in front of her and states she is not hungry. She has had episodes of vomiting that was bilious in nature. She is not nauseated currently. Low- grade fever last night. We'll schedule for CT abdomen and pelvis to rule out atypical pathology including peptic ulcer disease, appendicitis, diverticulitis. Assuming CAT scan shows no additional abnormalities Will proceed with laparoscopic, possible open cholecystectomy tomorrow. Risks of bleeding, infection, bile leak, bile duct injury, retained common bile duct stone, trocar injury, conversion to an open procedure, hernia, anesthesia related complications were reviewed. The patient understands and wishes to proceed. Continue antibiotics. Surgical - Exam Vital Signs Temp Pulse Resp BP Pulse Ox 97.9 F 92 18 144/85 96 09/23/19 19:34 09/23/19 19:34 09/23/19 19:34 09/23/19 19:34 09/23/19 19:34 Results - Labs 09/24/19 02:32 09/23/19 20:11 Abnormal Lab Results - Last 24 Hours (Table) 09/23/19 09/23/19 09/23/19 Range/Units 20:11 20:11 20:11 WBC 14.1 H (3.8-10.6) k/uL RDW 11.3 L (11.5-15.5) % Neutrophils # 12.7 H (1.3-7.7) k/uL Lymphocytes # 0.7 L (1.0-4.8) k/uL Creatinine 0.43 L (0.52-1.04) mg/dL Glucose 152 H (74-99) mg/dL Troponin I 0.039 H* (0.000-0.034) ng/mL Urine Protein (Negative) Urine Ketones (Negative) Urine Blood (Negative) Urine RBC (0-5) /hpf Urine Mucus (None) /hpf 09/23/19 09/23/19 09/24/19 Range/Units 21:22 22:59 02:32 WBC 16.0 H (3.8-10.6) k/uL RDW (11.5-15.5) % Neutrophils # 13.9 H (1.3-7.7) k/uL Lymphocytes # (1.0-4.8) k/uL Creatinine (0.52-1.04) mg/dL Glucose (74-99) mg/dL Troponin I 0.047 H* (0.000-0.034) ng/mL Urine Protein Trace H (Negative) Urine Ketones 1+ H (Negative) Urine Blood Moderate H (Negative) Urine RBC 29 H (0-5) /hpf Urine Mucus Rare H (None) /hpf Diabetes panel 09/23/19 09/24/19 Range/Units 20:11 02:32 Sodium 138 (137-145) mmol/L Potassium 3.6 (3.5-5.1) mmol/L Chloride 102 (98-107) mmol/L Carbon Dioxide 22 (22-30) mmol/L BUN 12 (7-17) mg/dL Creatinine 0.43 L (0.52-1.04) mg/dL Glucose 152 H (74-99) mg/dL Calcium 9.0 (8.4-10.2) mg/dL AST 23 (14-36) U/L ALT 23 (9-52) U/L Alkaline Phosphatase 101 (38-126) U/L Total Protein 7.2 (6.3-8.2) g/dL Albumin 4.1 (3.5-5.0) g/dL Triglycerides 48 (<150) mg/dL HDL Cholesterol 52 (40-60) mg/dL Calcium panel 09/23/19 Range/Units 20:11 Calcium 9.0 (8.4-10.2) mg/dL Albumin 4.1 (3.5-5.0) g/dL Pituitary panel 09/23/19 Range/Units 20:11 Sodium 138 (137-145) mmol/L Potassium 3.6 (3.5-5.1) mmol/L Chloride 102 (98-107) mmol/L Carbon Dioxide 22 (22-30) mmol/L BUN 12 (7-17) mg/dL Creatinine 0.43 L (0.52-1.04) mg/dL Glucose 152 H (74-99) mg/dL Calcium 9.0 (8.4-10.2) mg/dL Adrenal panel 09/23/19 Range/Units 20:11 Sodium 138 (137-145) mmol/L Potassium 3.6 (3.5-5.1) mmol/L Chloride 102 (98-107) mmol/L Carbon Dioxide 22 (22-30) mmol/L BUN 12 (7-17) mg/dL Creatinine 0.43 L (0.52-1.04) mg/dL Glucose 152 H (74-99) mg/dL Calcium 9.0 (8.4-10.2) mg/dL Total Bilirubin 0.7 (0.2-1.3) mg/dL AST 23 (14-36) U/L ALT 23 (9-52) U/L Alkaline Phosphatase 101 (38-126) U/L Total Protein 7.2 (6.3-8.2) g/dL Albumin 4.1 (3.5-5.0) g/dL
--- NOTE | 2019-09-24 17:01 | P.HPIM ---
History of Present Illness H&P Date: 09/24/19 Chief Complaint: Midepigastric/left rib cage pain, nausea, vomiting, diarrhea This is a pleasant 69-year-old nondiabetic female with medical history of hypertension, thyroid disorder, nonsmoker, presented to the ER with complaints of mid epigastric pain radiating to left rib cage and lower back. Patient reports a week ago, she developed chills, aches, malaise, no fevers.She stayed in bed and slept majority of this time, lasting 4 days. Recovered, regained normal diet intake. Saturday, consumed a cheeseburger,developed indigestion with significant mid epigastric pain radiating to left rib cage and to her lower back around midnight. Saturday morning, began having frequent nausea, vomiting and diarrhea, approximately 5 times accompanied by diaphoresis. Yellow Emesis with clear watery diarrhea. Denies exposure to anyone sick with a viral or influenza. 2 years ago had similar presentation, with a cardiac workup-she reports negative- completed at [facility]. Chest x-ray reporting mild pleural fluid at the lateral left lung base, slight blunting left costophrenic angle with some flattening of the diaphragm. Abdominal ultrasound reports numerous small gallstones, no dilated ducts, mild gallbladder wall prominence with possible cholecystitis, gallbladder measures 4 cm in diameter and 9.45 cm in length. EKG reported normal sinus rhythm, nonspecific T-wave abnormality, prolonged QT. Mild elevation of troponins; 0.039, 0.047, 0.034, 0.026. Triglycerides 48, cholesterol 153, LDL 91, HDL 52. Sodium 138, potassium 3.6, BUN 12, creatinine 0.43. LFTs, amylase, lipase within normal limits. UA reporting moderate blood, 1+ ketones, negative for leukocytes. T- max 99.5, WBC 14.1 on admission, further increased to 16 this morning. VSS. This morning pain currently complaining of mid epigastric and right upper quadrant. No nausea, vomiting and diarrhea resolved. Denies chest pain, palpitations or shortness of breath. Denies lightheadedness, dizziness or focal deficits. Received IV antibiotics of Rocephin in the ER, now on Zosyn, IV fluid hydration. Heparin drip initially started, then canceled in the ER as per admitting/ cardiology. Review of Systems ROS Statement: Those systems with pertinent positive or pertinent negative responses have been documented in the HPI. ROS Other: All systems not noted in ROS Statement are negative. Past Medical History Past Medical History: Hypertension, Thyroid Disorder History of Any Multi-Drug Resistant Organisms: None Reported Past Surgical History: Hysterectomy Additional Past Surgical History / Comment(s): left lumpectomy Past Psychological History: No Psychological Hx Reported Smoking Status: Never smoker Past Alcohol Use History: Occasional Past Drug Use History: None Reported Medications and Allergies Home Medications Medication Instructions Recorded Confirmed Type Ibuprofen [Advil] 200 mg PO Q8HR PRN 09/23/19 09/23/19 History Levothyroxine Sodium 25 mcg PO DAILY 09/23/19 09/23/19 History Losartan [Cozaar] 25 mg PO DAILY 09/23/19 09/23/19 History Allergies Allergy/AdvReac Type Severity Reaction Status Date / Time No Known Allergies Allergy Verified 09/23/19 22:11 Physical Exam Vitals: Vital Signs Temp Pulse Pulse Resp BP BP BP 09/24/19 08:00 98.8 F 88 16 150/69 09/24/19 03:43 98 F 88 18 175/72 09/23/19 23:00 99 19 176/86 09/23/19 22:47 99.2 F 85 18 183/79 09/23/19 20:45 94 19 168/76 09/23/19 20:00 98 19 173/89 09/23/19 19:34 97.9 F 92 18 144/85 Pulse Ox 09/24/19 08:00 94 L 09/24/19 03:43 97 09/23/19 23:00 97 09/23/19 22:47 98 09/23/19 20:45 97 09/23/19 20:00 98 09/23/19 19:34 96 Intake and Output 09/23/19 09/24/19 09/24/19 22:59 06:59 14:59 Intake Total 0 Output Total 700 Balance -700 0 Intake: Oral 0 Output: Urine 700 Other: Voiding Method Toilet # Voids 2 0 # Bowel Movements 0 Weight 55.792 kg 55.1 kg PHYSICAL EXAM: VITAL SIGNS: As above GENERAL: Sitting up in bed, no acute distress, HEENT: Pale, Flushed, Conjunctivae normal. eyes normal. NECK: No JVD. No thyroid enlargement. No LNs CARDIOVASCULAR: S1, S2 regular. No murmur, rub or gallop RESPIRATION: Breath sounds clear, diminished in the bases. No rhonchi or c rackles. No bronchial breathing. ABDOMEN: Soft, nondistended , right upper quadrant tenderness. No guarding. no masses palpable. No ascites, No hepatosplenomegaly.Bowel sounds heard. LEGS: No edema. no swelling. No clubbing, no cyanosis, no calf tenderness. PSYCHIATRY: Alert and oriented X3, mood and affect normal. NERVOUS SYSTEM: Cranial N 2-12 grossly normal. Moves all 4 limbs. Diffuse weak ness, No focal deficits. Strength and sensation grossly intact.. Skin: no lesions, no rash Joints: No active swelling. No inflammation. Lymphatic system. No LN neck axilla. Results CBC & Chem 7: 09/24/19 02:32 09/23/19 20:11 Labs: Abnormal Lab Results - Last 24 Hours (Table) 09/23/19 09/23/19 09/23/19 Range/Units 20:11 20:11 20:11 WBC 14.1 H (3.8-10.6) k/uL RDW 11.3 L (11.5-15.5) % Neutrophils # 12.7 H (1.3-7.7) k/uL Lymphocytes # 0.7 L (1.0-4.8) k/uL Creatinine 0.43 L (0.52-1.04) mg/dL Glucose 152 H (74-99) mg/dL Troponin I 0.039 H* (0.000-0.034) ng/mL Urine Protein (Negative) Urine Ketones (Negative) Urine Blood (Negative) Urine RBC (0-5) /hpf Urine Mucus (None) /hpf 09/23/19 09/23/19 Range/Units 21:22 22:59 WBC (3.8-10.6) k/uL RDW (11.5-15.5) % Neutrophils # (1.3-7.7) k/uL Lymphocytes # (1.0-4.8) k/uL Creatinine (0.52-1.04) mg/dL Glucose (74-99) mg/dL Troponin I 0.047 H* (0.000-0.034) ng/mL Urine Protein Trace H (Negative) Urine Ketones 1+ H (Negative) Urine Blood Moderate H (Negative) Urine RBC 29 H (0-5) /hpf Urine Mucus Rare H (None) /hpf Thrombosis Risk Factor Assmnt - Choose All That Apply Any of the Below Risk Factors Present?: No Other Risk Factors: Yes Each Risk Factor Represents 2 Points: Age 61-74 years Thrombosis Risk Factor Assessment Total Risk Factor Score: 2 Thrombosis Risk Factor Assessment Level: Low Risk Assessment and Plan Assessment: -Intractable nausea vomiting and diarrhea with Abdominal pain, possible acute cholecystitis -Mild elevated troponins with nonspecific T-wave abnormality per EKG, in a patient with mid epigastric pain, possible NSTEMI -Hypertension -Hypothyroidism Plan: Continue on current medication regime, monitoring and symptomatically treatment. IV fluid hydration. IV antibiotics of Zosyn. Echo ordered. GI and DVT prophylaxis in place with heparin subcu and Protonix IV push. Cardiology and surgery consult in place with recommendations pending. All meds have been reviewed and resumed accordingly. Further recommendations to follow. The impression and plan of care has been dictated as directed. : I performed a history and examination of this patient, discussed the same with the dictator. I agree with the dictator's note ,documented as a scribe. Any additional findings or plans will be noted.
[2019-09-24] MEDS: PIPERACILLIN-TAZOBACTAM 3.375 GM in SODIUM CHLORIDE 0.9% 100 ML IVPB SCH ×2 (18:04→22:38)
[2019-09-24] MEDS: PANTOPRAZOLE 40 MG/10 ML VIAL IVP SCH (18:04)
[2019-09-24] MEDS ORDERED: IOPAMIDOL CONTRAST (ORAL USE) VIAL PO PRN (18:34)
[2019-09-24] MEDS: IOPAMIDOL CONTRAST (ORAL USE) VIAL PO PRN ×2 (20:07→21:10)
[2019-09-24] MEDS: HEPARIN SODIUM,PORCINE 5,000 UNIT/ML 1 ML VIAL SQ SCH (21:54)
--- NOTE | 2019-09-24 22:10 | CT ---
EXAMINATION TYPE: CT abdomen pelvis wo con DATE OF EXAM: 09/24/2019 COMPARISON: None HISTORY: Epigastric pain, vomiting CT DLP: 398.7 mGycm Automated exposure control for dose reduction was used. TECHNIQUE: Helical acquisition of images was performed from the lung bases through the pelvis. FINDINGS: There is mild scarring and subsegmental atelectasis at the lung bases. Heart size is top normal. Stomach appears normal. There is dilated gallbladder with wall thickening. There are multiple calcifi cations in the deep and gallbladder. Gallbladder measures 4.5 cm in diameter. There is no discrete li donna mass. There are multiple low-density areas in the spleen. There is no evidence of pancreatic mass . There is moderate thickening of the descending duodenum. Wall measures up to 1.5 cm. There is no ad renal mass. Kidneys have normal size. There is right-sided perinephric fluid. There is 1.5 cm enlarge d left periaortic lymph node. Bladder distends smoothly. There is no inguinal hernia. There is no norman e fluid in the pelvis. There is no evidence of a bowel obstruction. There are multiple sigmoid divert icula. There is small amount of fluid in the right perirenal space. Lumbar vertebra show fairly normal spacing. There is no compression fracture. Bony pelvis is intact. IMPRESSION: THERE IS MINIMAL RIGHT-SIDED HYDRONEPHROSIS AND PERINEPHRIC FLUID THAT COULD RELATE TO PYELONEPHRITIS . NO OBSTRUCTING CALCULUS SEEN. RIGHT URETER IS NOT DILATED. DILATED GALLBLADDER WITH GALLSTONES AND WALL THICKENING CONSISTENT WITH CHOLECYSTITIS. THICKENING OF THE WALL OF THE DESCENDING DUODENUM CONSISTENT WITH INFLAMMATORY PROCESS.
[2019-09-25] MEDS: SODIUM CHLORIDE 0.9% 1,000 ML IV SCH ×6 (01:02→19:56)
[2019-09-25] MEDS: LEVOTHYROXINE 25 MCG TAB PO SCH ×2 (04:22→08:15)
[2019-09-25] MEDS: ASPIRIN 325 MG TAB PO SCH (08:15)
[2019-09-25] MEDS: LOSARTAN 25 MG TAB PO SCH (08:16)
[2019-09-25] MEDS: HEPARIN SODIUM,PORCINE 5,000 UNIT/ML 1 ML VIAL SQ SCH ×2 (08:31→19:56)
[2019-09-25] MEDS: PIPERACILLIN-TAZOBACTAM 3.375 GM in SODIUM CHLORIDE 0.9% 100 ML IVPB SCH ×3 (08:49→22:20)
[2019-09-25 08:58] LABS: HCT 35.1 % (34.0-46.0); MCH 32.1 pg (25.0-35.0); MCHC 34.2 g/dL (31.0-37.0); MCV 93.9 fL (80.0-100.0); Mean Platelet Volume 5.7; Platelet Count 266 k/uL (150-450); RBC 3.74 m/uL (3.80-5.40); RDW 11.5 % (11.5-15.5); WBC 16.9 k/uL (3.8-10.6)
[2019-09-25] MEDS: PANTOPRAZOLE 40 MG/10 ML VIAL IVP SCH (08:59)
[2019-09-25 09:10] LABS: African American GFR (CKD) >90 (>60 ml/min/1.73 sqM); Anion Gap 9 mmol/L; Blood Urea Nitrogen 7 mg/dL (7-17); Calcium 8.1 mg/dL (8.4-10.2); Carbon Dioxide 23 mmol/L (22-30); Chloride 105 mmol/L (98-107); Glucose 114 mg/dL (74-99); Potassium 3.3 mmol/L (3.5-5.1); Sodium 137 mmol/L (137-145)
[2019-09-25] MEDS ORDERED: SODIUM CHLORIDE 0.9% 1,000 ML IV ONE (12:25)
[2019-09-25] MEDS ORDERED: ONDANSETRON 4 MG/2 ML VIAL IVP ONE (12:44)
[2019-09-25] MEDS ORDERED: DEXAMETHASONE SOD PHOS (MDV) 100 MG/10 ML VIAL IVP ONE (12:44)
[2019-09-25] MEDS ORDERED: SCOPOLAMINE 1.5MG/72HR PATCH TRANSDERM ONE (12:45)
[2019-09-25] MEDS ORDERED: HEPARIN SODIUM,PORCINE 5,000 UNIT/ML 1 ML VIAL SQ ONE (13:03)
--- NOTE | 2019-09-25 13:03 | P.PN ---
Progress Note - Text Progress Note Date: 09/25/19 Patient says her pain today is improved. The patient's CAT scan last night was reviewed with Dr. Buenrostro. The patient's CAT scan shows impressive inflammation involving the lacy hepatis, duodenum, perinephric spaces. Questionable retroperitoneal lymph node as well. Last evening's CAT scan report raised the possibility of malignancy. Clinically the patient's presentation and exam is more consistent with acute likely gangrenous cholecystitis. Radiologist review this morning with me agrees that this is most likely inflammatory changes from the severe cholecystitis. This was reviewed with the patient and her . Recommend proceeding with laparoscopic, possible open cholecystectomy at this time. Risks of bleeding, infection, bile leak, bile duct injury, retained common bile duct stone, trocar injury, conversion to an open procedure, hernia, anesthesia related complications were reviewed. The patient understands and wishes to proceed.
[2019-09-25] MEDS ORDERED: fentaNYL (PF) 50 MCG/ML 2 ML AMP ONE (13:29)
[2019-09-25] MEDS ORDERED: PROPOFOL 10 MG/ML 20 ML VIAL IV ONE (13:29)
[2019-09-25] MEDS ORDERED: LIDOCAINE 1% INJ 10MG/ML (20 ML MDV) ONE (13:29)
[2019-09-25] MEDS ORDERED: MIDAZOLAM 2 MG/2 ML VIAL ONE (13:29)
[2019-09-25] MEDS ORDERED: ROCURONIUM BROMIDE 10 MG/ML 10 ML VIAL IV ONE (13:29)
[2019-09-25] MEDS ORDERED: PHENYLEPHRINE-0.9% NACL SYG 1 MG/10 ML SYRINGE ONE (13:29)
[2019-09-25] MEDS ORDERED: HYDROmorphone (PF) 1 MG/ML ONE (13:29)
[2019-09-25] MEDS ORDERED: GLYCOPYRROLATE 0.2 MG/ML 2 ML VIAL ONE (13:29)
[2019-09-25] MEDS ORDERED: NEOSTIGMINE 1 MG/ML 10 ML VIAL ONE (13:29)
[2019-09-25] MEDS ORDERED: BUPIVACAINE (PF) 0.25% 30 ML VIAL SQ ONE (13:59)
[2019-09-25] MEDS ORDERED: LACTATED RINGERS 1,000 ML IV ONE (14:44)
[2019-09-25] MEDS ORDERED: Potassium Replacement Protocol 1 EACH MISC MISCELLANE PRN ×2 (14:46→16:45)
[2019-09-25] MEDS ORDERED: HYDROmorphone 1 MG/ML 1 ML SYRINGE IVP PRN (15:37)
--- NOTE | 2019-09-25 15:44 | P.OP ---
Date of Procedure: 09/25/19 Procedure(s) Performed: PREOPERATIVE DIAGNOSIS: Acute cholecystitis POSTOPERATIVE DIAGNOSIS: Same PROCEDURE: Diagnostic laparoscopy, open cholecystectomy SURGEON: Gina EBL: 50 mL ANESTHESIA: Gen. COMPLICATIONS: None OPERATIVE PROCEDURE: The patient was brought and placed on the operating room table in the supine position. The patient was placed under general anesthesia at that time. The abdomen was prepped and draped in the usual sterile fashion. During palpation of the abdomen after anesthesia the region of the gallbladder was firm to palpation. A small vertical infraumbilical incision was made. The fascia was grasped with the Khoa forceps. The fascia was retracted anteriorly. The Veress needle was advanced into the peritoneal cavity. The saline drop test was normal. Insufflation took place up to 15 mmHg. A 5 mm optical trocar was advanced and the peritoneal cavity. A 12 mm trocar was advanced into the epigastric incision site. The patient had dense adhesions in the right upper quadrant. There was some purulent fluid seen adjacent to the inferior aspect of the right lobe of the liver and also where the distal stomach was adherent to the falciform ligament. I was able to bluntly dissect with my pusher to reveal a distended inflamed gallbladder. Thankfully this did not ap pear to be a malignant process and seemed consistent with a bad cholecystitis. The degree of inflammation at this time and the difficulty manipulating the gallbladder led to a fairly quick decision to convert to an open approach. A right subcostal incision was made extending to the right from our 12 mm trocar site entrance. The subcutaneous tissues including fascia were divided using electrocautery. The Bookwalter retractor was utilized. Blunt dissection helped further mobilize the gallbladder. The gallbladder was very distended. A small opening in the fundus of the gallbladder was created. Hydrops fluid was evacuated. There was also a fair amount of foul-smelling purulence that was coming out of the gallbladder wall and out of the gallbladder lumen. Cultures of the purulent fluid was taken. The gallbladder was removed from the liver bed using electrocautery. Once we reached the more distal aspect of the gallbladder the small branches of the cystic artery entering into the gallbladder were dissected and clipped. I was able to visualize a small pinhole like opening in the distal aspect of the infundibulum. This is likely where a stone had been impacted. There was some purulence coming out of the gallbladder in that location. About 1.5 cm distal to that we were on the more appropriately sized cystic duct. I could not visualize the common hepatic or common bile duct however we had no uncertainty as to the fact that we were still on the cystic duct at this point. This was divided using 2 separate 2-0 silk sutures. The gallbladder was passed off. The right upper quadrant was irrigated with saline. The powder Surgicel was utilized on the gallbladder bed. This was watched for some time with no evidence of bleeding. A drain was placed in the gallbladder f luciano exiting laterally and inferiorly. The drain was sutured to the skin using a 3-0 silk stitch. The abdominal wall fascia was closed in 2 separate layers using running double-stranded #1 PDS sutures. Subcutaneous tissues were irrigated. They were then reapproximated using 2-0 Vicryl sutures. The skin was loosely reapproximated at the subcostal incision site with sharmila. The umbilical incision was closed using a 4-0 Monocryl stitch. Sterile dressings were applied. At the end of this procedure the sponge and needle counts were correct. DISPOSITION: Stable to the recovery room
--- NOTE | 2019-09-25 15:59 | P.PN ---
Subjective Progress Note Date: 09/25/19 This is a pleasant 69-year-old nondiabetic female with medical history of hypertension, thyroid disorder, nonsmoker, presented to the ER with complaints of mid epigastric pain radiating to left rib cage and lower back. Patient reports a week ago, she developed chills, aches, malaise, no fevers.She stayed in bed and slept majority of this time, lasting 4 days. Recovered, regained normal diet intake. Saturday, consumed a cheeseburger,developed indigestion with significant mid epigastric pain radiating to left rib cage and to her lower back around midnight. Saturday morning, began having frequent nausea, vomiting and diarrhea, approximately 5 times accompanied by diaphoresis. Yellow Emesis with clear watery diarrhea. Denies exposure to anyone sick with a viral or influenza. 2 years ago had similar presentation, with a cardiac workup-she reports negative- completed at [facility]. Chest x-ray reporting mild pleural fluid at the lateral left lung base, slight blunting left costophrenic angle with some flattening of the diaphragm. Abdominal ultrasound reports numerous small gallstones, no dilated ducts, mild gallbladder wall prominence with possible cholecystitis, gallbladder measures 4 cm in diameter and 9.45 cm in length. EKG reported normal sinus rhythm, nonspecific T-wave abnormality, prolonged QT. Mild elevation of troponins; 0.039, 0.047, 0.034, 0.026. Triglycerides 48, cholesterol 153, LDL 91, HDL 52. Sodium 138, potassium 3.6, BUN 12, creatinine 0.43. LFTs, amylase, lipase within normal limits. UA reporting moderate blood, 1+ ketones, negative for leukocytes. T- max 99.5, WBC 14.1 on admission, further increased to 16 this morning. VSS. This morning pain currently complaining of mid epigastric and right upper quadrant. No nausea, vomiting and diarrhea resolved. Denies chest pain, palpitations or shortness of breath. Denies lightheadedness, dizziness or focal deficits. Received IV antibiotics of Rocephin in the ER, now on Zosyn, IV fluid hydration. Heparin drip initially started, then canceled in the ER as per admitting/ cardiology. 09/25/2019 evaluated by cardiology yesterday, recommending cardiac catheterization. Patient underwent left heart catheterization reporting normal coronary arteries, normal end-diastolic pressures. Evaluated by surgery. Abdominal/pelvis ultrasound with oral contrast only performed last night reporting minimal right-sided hydronephrosis with. Nephrotic fluid possible pyelonephritis with no obstructing calculus seen- right ureter not dilated, dilated gallbladder with gallstones, wall thickening consistent with cholecystitis, thickening of the descending duodenum consistent with inflammat ory process, 1.5 cm enlarged left periaortic lymph node, possible lymphoma. Discussed CT results with Dr. Fuentes who had further reviewed films with radiologist, doubt malignancy-suspecting severe cholecystitis/gangrenous. Surgery pending. T-max 99.6, labs pending. Stool culture obtained, ruling out C. difficile colitis. Objective - Vital Signs Vital signs: Vital Signs Temp 98.7 F 09/25/19 04:00 Pulse 86 09/25/19 04:00 Resp 18 09/25/19 04:00 BP 142/72 09/25/19 04:00 Pulse Ox 97 09/25/19 04:00 Intake & Output 09/24/19 09/25/19 09/25/19 18:59 06:59 18:59 Intake Total 490 Output Total 1300 Balance -810 Weight 55.8 kg Intake: IV 250 Oral 240 Output: Urine 1300 Other: Voiding Method Toilet # Voids 0 1 # Bowel Movements 0 - Exam VITAL SIGNS: As above GENERAL: Sitting up in bed, no acute distress, HEENT: Pale, Conjunctivae normal. eyes normal. Oral mucosa dry NECK: No JVD. No thyroid enlargement. No LNs CARDIOVASCULAR: S1, S2 regular. No murmur, rub or gallop RESPIRATION: Breath sounds clear, diminished in the bases. No rhonchi or crackles. No wheezing. ABDOMEN: Soft, nondistended , right upper quadrant tenderness. No guarding. no masses palpable. Bowel sounds heard. LEGS: No edema. no swelling. No clubbing, no cyanosis, no calf tenderness. PSYCHIATRY: Alert and oriented X3, mood and affect normal. NERVOUS SYSTEM: Cranial N 2-12 grossly normal. Moves all 4 limbs. Diffuse weakness, No focal deficits. Strength and sensation grossly intact.. Skin: no lesions, no rash. Joints: No active swelling. No inflammation. - Labs CBC & Chem 7: 09/25/19 08:29 09/25/19 08:29 Labs: Abnormal Lab Results - Last 24 Hours (Table) 09/24/19 Range/Units 02:32 WBC 16.0 H (3.8-10.6) k/uL Neutrophils # 13.9 H (1.3-7.7) k/uL Assessment and Plan Assessment: -Intractable nausea vomiting and diarrhea with Abdominal pain, acute severe , gangrenous cholecystitis, OR pending -Mild elevated troponins with nonspecific T-wave abnormality per EKG, in a patient with mid epigastric pain, possible NSTEMI, status post a catheterization reporting normal coronaries. -possible passage of renal calculi, right nonobstructive hydronephrosis per CT -Hypertension -Hypothyroidism -Hypokalemia Plan: Continue on current medication regime, monitoring and symptomatically treatment. Maintained IV fluid hydration. Continue IV antibiotics of Zosyn. Aggressive pulmonary toileting with incentive spirometer ordered .Surgery pending. ID consulted. Blood cultures ordered. Further recommendations to follow. The impression and plan of care has been dictated as directed. : I performed a history and examination of this patient, discussed the same with the dictator. I agree with the dictator's note ,documented as a scribe. Any additional findings or plans will be noted.
[2019-09-25] MEDS: POTASSIUM CHLORIDE ER 20 MEQ TAB.ER PO SCH ×2 (18:14→19:56)
[2019-09-25] MEDS: HYDROcodone/APAP 5-325MG 1 EACH TAB PO PRN ×2 (18:25→22:20)
[2019-09-25] MEDS: METOPROLOL TARTRATE 25 MG TAB PO SCH (19:56)
[2019-09-26] MEDS: LEVOTHYROXINE 25 MCG TAB PO SCH (04:30)
[2019-09-26] MEDS: HYDROcodone/APAP 5-325MG 1 EACH TAB PO PRN ×4 (04:31→21:20)
[2019-09-26 07:11] LABS: Basophils % (A) 0 %; Eosinophils % (A) 0 %; HCT 33.5 % (34.0-46.0); Lymphocytes % (A) 8 %; MCH 31.3 pg (25.0-35.0); MCHC 32.9 g/dL (31.0-37.0); MCV 95.4 fL (80.0-100.0); Mean Platelet Volume 5.9; Monocytes # (A) 0.5 k/uL (0-1.0); Monocytes % (A) 4 %; Neutrophils # (A) 11.6 k/uL (1.3-7.7); Neutrophils % (A) 87 %; Platelet Count 266 k/uL (150-450); RBC 3.51 m/uL (3.80-5.40); RDW 11.7 % (11.5-15.5); WBC 13.2 k/uL (3.8-10.6)
[2019-09-26 07:24] LABS: ALT 55 U/L (9-52); AST 58 U/L (14-36); African American GFR (CKD) >90 (>60 ml/min/1.73 sqM); Albumin 2.6 g/dL (3.5-5.0); Alkaline Phosphatase 99 U/L (38-126); Anion Gap 9 mmol/L; Blood Urea Nitrogen 15 mg/dL (7-17); Calcium 8.1 mg/dL (8.4-10.2); Carbon Dioxide 22 mmol/L (22-30); Chloride 108 mmol/L (98-107); Glucose 115 mg/dL (74-99); Sodium 139 mmol/L (137-145); Total Bilirubin 0.6 mg/dL (0.2-1.3); Total Protein 5.2 g/dL (6.3-8.2)
[2019-09-26] MEDS: PIPERACILLIN-TAZOBACTAM 3.375 GM in SODIUM CHLORIDE 0.9% 100 ML IVPB SCH ×2 (09:04→15:39)
[2019-09-26] MEDS: METOPROLOL TARTRATE 25 MG TAB PO SCH ×2 (09:11→21:20)
[2019-09-26] MEDS: HEPARIN SODIUM,PORCINE 5,000 UNIT/ML 1 ML VIAL SQ SCH ×2 (09:11→21:19)
[2019-09-26] MEDS: PANTOPRAZOLE 40 MG/10 ML VIAL IVP SCH (09:11)
[2019-09-26] MEDS: LOSARTAN 25 MG TAB PO SCH (09:11)
[2019-09-26] MEDS: ASPIRIN 325 MG TAB PO SCH (09:11)
[2019-09-26] MEDS: SODIUM CHLORIDE 0.9% 1,000 ML IV SCH ×4 (09:16→21:20)
--- NOTE | 2019-09-26 09:21 | P.CONS ---
History of Present Illness - Reason for Consult Consult date: 09/25/19 Gangrenous cholecystitis Requesting physician: Dung Olguin - Chief Complaint Epigastric pain and vomiting x few days - History of Present Illness Patient is a 69-year-old female presenting to the ER at [facility] on 09/23/2019 with a chief complaints of epigastric discomfort and vomiting patient's symptom has been going on for about a day before she p resented to the hospital patient describing the pain in the epigastric area with more of indigestion and discomfort intensity about 5 out of 10 and no radiation with associated vomiting she is about 4 episodes of vomiting before she presented to the hospital patient did have previously some chills but no high- grade fever with these symptoms the patient was evaluated by the ER physician patient did not have any fever however she did have elevated white count patient did have ultrasound of the abdominal followed by a CT and has been evaluated by surgery after review of the CT with the radiologist by surgery decision was taken for the patient to be taken the OR for possible cholecystitis the patient is status post open cholecystectomy with concern for gangrenous choleCystitis patient was started on Zosyn and infectious disease was consulted for further recommendation regarding antibiotic therapy Review of Systems Positive point has been mentioned in the HPI rest of the systems are negative Past Medical History Past Medical History: Hypertension, Thyroid Disorder History of Any Multi-Drug Resistant Organisms: None Reported Past Surgical History: Hysterectomy Additional Past Surgical History / Comment(s): left lumpectomy Past Psychological History: No Psychological Hx Reported Smoking Status: Never smoker Past Alcohol Use History: Occasional Past Drug Use History: None Reported Medications and Allergies Home Medications Medication Instructions Recorded Confirmed Type Ibuprofen [Advil] 200 mg PO Q8HR PRN 09/23/19 09/23/19 History Levothyroxine Sodium 25 mcg PO DAILY 09/23/19 09/23/19 History Losartan [Cozaar] 25 mg PO DAILY 09/23/19 09/23/19 History Allergies Allergy/AdvReac Type Severity Reaction Status Date / Time No Known Allergies Allergy Verified 09/23/19 22:11 Physical Exam Vitals: Vital Signs Temp Pulse Pulse Resp BP Pulse Ox 09/25/19 16:01 81 16 152/72 98 09/25/19 15:45 84 16 139/72 97 09/25/19 15:30 93 16 141/69 97 09/25/19 15:21 97.5 F L 100 16 155/78 97 09/25/19 12:29 99.4 F 91 16 147/79 96 09/25/19 12:00 98.4 F 81 16 125/66 96 09/25/19 11:17 98.4 F 81 18 125/66 96 09/25/19 08:00 96 18 09/25/19 07:35 98.0 F 96 18 149/90 98 09/25/19 07:29 99.6 F 96 18 145/73 95 09/25/19 04:00 98.7 F 86 18 142/72 97 09/25/19 00:00 85 18 152/70 98 09/24/19 20:00 98.5 F 82 18 160/75 96 Intake and Output 09/25/19 09/25/19 09/25/19 06:59 14:59 22:59 Intake Total 1210 0 Output Total 50 Balance 1210 -50 Intake: IV 1150 0 Oral 60 Output: Estimated Blood Loss 50 Other: Voiding Method Toilet # Voids 1 Weight 55.8 kg GENERAL DESCRIPTION: Elderly female lying in bed, no distress. No tachypnea or accessory muscle of respiration use. HEENT: Shows Pallor , no scleral icterus. Oral mucous membrane is dry. No pharyngeal erythema or thrush NECK: Trachea central, no thyromegaly. LUNGS: Unlabored breathing. Clear to auscultation anteriorly. No wheeze or crackle. HEART: S1, S2, regular rate and rhythm. No loud murmur ABDOMEN: Soft, mild right upper quadrant tenderness , no guarding or rigidity, no organomegaly EXTREMITIES: No edema of feet. SKIN: No rash, no masses palpable. NEUROLOGICAL: The patient is awake, alert, oriented x3, mood and affect normal. Results CBC & Chem 7: 09/26/19 06:32 09/26/19 06:32 Labs: Abnormal Lab Results - Last 24 Hours (Table) 09/25/19 09/25/19 Range/Units 08:29 08:29 WBC 16.9 H (3.8-10.6) k/uL RBC 3.74 L (3.80-5.40) m/uL Potassium 3.3 L (3.5-5.1) mmol/L Creatinine 0.48 L (0.52-1.04) mg/dL Glucose 114 H (74-99) mg/dL Calcium 8.1 L (8.4-10.2) mg/dL Assessment and Plan Assessment: 1-patient presented in the hospital with epigastric discomfort in this patient also have vomiting patient did have mildly elevated liver enzymes with an abnormal CT concern for cholecystitis subsequently has been taken to the OR and status post cholecystectomy with concern for gangrenous cholecystitis likely organism that need to be covered with are enteric gram-negative more likely aerobes less likely anaerobes (1) Acute cholecystitis Current Visit: Yes Status: Acute Code(s): K81.0 - ACUTE CHOLECYSTITIS SNOMED Code(s): 19061653 Plan: 1-Zosyn 3.375 g every 8 hours 2-gentle IV fluid We will follow on clinical condition and cultures to further adjust medication if needed Thank you for this consultation will follow this patient with you Time with Patient: Greater than 30
--- NOTE | 2019-09-26 11:24 | P.PN ---
Subjective Progress Note Date: 09/26/19 Principal diagnosis: Acute cholecystitis Patient feels better today. Having more surgical discomfort however pain that she was having preoperatively is much less. Labs noted. Liver enzymes minimally elevated. She is afebrile. JEFF drain is serosanguineous. Objective - Vital Signs Vital signs: Vital Signs Temp 98.1 F 09/26/19 08:05 Pulse 70 09/26/19 08:05 Resp 16 09/26/19 08:05 BP 159/71 09/26/19 08:05 Pulse Ox 95 09/26/19 08:05 Intake & Output 09/25/19 09/26/19 09/26/19 18:59 06:59 18:59 Intake Total 1210 360 Output Total 50 50 50 Balance 1160 -50 310 Weight 57.3 kg Intake: IV 1150 Oral 60 360 Output: Drainage 50 50 Right Lower Abdomen 50 50 Estimated Blood Loss 50 Other: Voiding Method Toilet Toilet # Voids 1 - Exam Abdomen: Soft, nondistended, dressing clean and dry, mild tenderness, JEFF serosanguineous - Labs CBC & Chem 7: 09/26/19 06:32 09/26/19 06:32 Labs: Abnormal Lab Results - Last 24 Hours (Table) 09/25/19 09/26/19 09/26/19 Range/Units 16:10 06:32 06:32 WBC 13.2 H (3.8-10.6) k/uL RBC 3.51 L (3.80-5.40) m/uL Hgb 11.0 L (11.4-16.0) gm/dL Hct 33.5 L (34.0-46.0) % Neutrophils # 11.6 H (1.3-7.7) k/uL Potassium 3.4 L (3.5-5.1) mmol/L Chloride 108 H (98-107) mmol/L Glucose 115 H (74-99) mg/dL Calcium 8.1 L (8.4-10.2) mg/dL AST 58 H (14-36) U/L ALT 55 H (9-52) U/L Total Protein 5.2 L (6.3-8.2) g/dL Albumin 2.6 L (3.5-5.0) g/dL Microbiology - Last 24 Hours (Table) 09/25/19 15:07 Gram Stain - Preliminary Other - Other Wound Culture - Preliminary 09/25/19 15:07 Anaerobic Culture - Preliminary Other - Other Assessment and Plan (1) Acute cholecystitis Narrative/Plan: Patient doing fairly well today. Much better than expected actually. Continue increasing activity. Continue clear liquids today. Monitor EJFF output. Repeat labs tomorrow. Continue broad-spectrum antibiotics. Appreciate ID input. Gram stain and cultures negative thus far. Current Visit: Yes Status: Acute Code(s): K81.0 - ACUTE CHOLECYSTITIS SNOMED Code(s): 57037187
--- NOTE | 2019-09-26 11:55 | P.PN ---
Subjective patient is admitted for abdominal pain nausea vomiting found to have gangrenous cholecystitis and patient underwent cholecystectomy patient is presently on Zosyn clinically doing well abdominal pain significantly improved did pass gas bowel sounds are sluggish. Had a small bowel movement as well.patient is tolerating clear liquid diet well. Constitutional: Denied any fatigue denied any fever. Cardio vascular: denied any chest pain, palpitations Gastrointestinal denied any nausea vomiting Pulmonary: Denied any shortness of breath cough Neurologic denied any new focal deficits All inpatient medications were reviewed and appropriate changes in these medications as dictated in the interval history and assessment and plan. Objective - Vital Signs Vital signs: Vital Signs Temp 98.1 F 09/26/19 08:05 Pulse 70 09/26/19 08:05 Resp 16 09/26/19 08:05 BP 159/71 09/26/19 08:05 Pulse Ox 95 09/26/19 08:05 Intake & Output 09/25/19 09/26/19 09/26/19 18:59 06:59 18:59 Intake Total 1210 360 Output Total 50 50 70 Balance 1160 -50 290 Weight 57.3 kg Intake: IV 1150 Oral 60 360 Output: Drainage 50 70 Right Lower Abdomen 50 70 Estimated Blood Loss 50 Other: Voiding Method Toilet Toilet # Voids 1 - Exam PHYSICAL EXAMINATION: GENERAL: The patient is alert and oriented x3, not in any acute distress. Well developed, well nourished. HEENT: Pupils are round and equally reacting to light. EOMI. No scleral icterus. No conjunctival pallor. Normocephalic, atraumatic. No pharyngeal erythema. No thyromegaly. CARDIOVASCULAR: S1 and S2 present. No murmurs, rubs, or gallops. PULMONARY: Chest is clear to auscultation, no wheezing or crackles. ABDOMEN: Soft,bowel sounds are sluggish there is no significant tenderness surgical site areas of pain. MUSCULOSKELETAL: No joint swelling or deformity. EXTREMITIES: No cyanosis, clubbing, or pedal edema. NEUROLOGICAL: Gross neurological examination did not reveal any focal deficits. SKIN: No rashes. - Labs CBC & Chem 7: 09/26/19 06:32 09/26/19 06:32 Labs: Abnormal Lab Results - Last 24 Hours (Table) 09/25/19 09/26/19 09/26/19 Range/Units 16:10 06:32 06:32 WBC 13.2 H (3.8-10.6) k/uL RBC 3.51 L (3.80-5.40) m/uL Hgb 11.0 L (11.4-16.0) gm/dL Hct 33.5 L (34.0-46.0) % Neutrophils # 11.6 H (1.3-7.7) k/uL Potassium 3.4 L (3.5-5.1) mmol/L Chloride 108 H (98-107) mmol/L Glucose 115 H (74-99) mg/dL Calcium 8.1 L (8.4-10.2) mg/dL AST 58 H (14-36) U/L ALT 55 H (9-52) U/L Total Protein 5.2 L (6.3-8.2) g/dL Albumin 2.6 L (3.5-5.0) g/dL Microbiology - Last 24 Hours (Table) 09/25/19 15:07 Gram Stain - Preliminary Other - Other Wound Culture - Preliminary 09/25/19 15:07 Anaerobic Culture - Preliminary Other - Other Assessment and Plan Plan: -gangrenous cholecystitis: Continue with antibiotics patient is status post cholecystectomy. -Mildly elevated troponin: Secondary to sepsis from a gangrenous, cystitis no evidence of myocardial infarction. -Hypertension -Hypothyroidism
--- NOTE | 2019-09-26 14:48 | P.PN ---
Subjective Progress Note Date: 09/26/19 This is a pleasant 69-year-old female with history of hypertension, hypothyroidism, nondiabetic, nonsmoker, no family history of premature coronary artery disease, presents to the hospital with symptoms of epigastric discomfort with radiation to the back area. Patient states that a week ago Saturday she had generalized aches and malaise, states that she stayed in bed for approximately 4 days. She had recovered from this, was eating normally. She states that she developed a discomfort in her mid epigastric area that radiated around to her back, subsequently patient became diaphoretic and had an episode of vomiting. She came to the emergency room for further evaluation and treatment. Ap proximately 2 years ago, as patient states she had very similar symptoms but also had an associated pressure and heaviness in the chest at that time, she went to [facility], states that she had a workup done there and everything came back negative. Patient also in between that time has had one minor similar episodes to this. Chest x-ray on presentation here showed some mild pleural reaction or fluid in the lateral left lung base. does have some tenderness on exam in the right upper quadrant and for this reason she underwent an ultrasound of the abdomen which revealed numerous small gallstones. No dilated ducts. Mild gallbladder wall prominence. Gallbladder measures 4 cm in diameter. Cholecystitis is possible. Possible minimal right-sided hydronephrosis. Her initial EKG on presentation here showed a normal sinus rhythm with nonspecific T-wave abnormality. Subsequent EKG showed normal sinus rhythm with T wave changes noted in the inferior leads and mild ST depression in the lateral leads. Blood pressure on arrival here 140/80 with a heart rate of 90, 96% on room air. I pressure this morning 150/68 with a heart rate in the 80s, 94% on room air. White blood cell count 14.1, hemoglobin 14.1, platelet count 280. Sodium 138, potassium 3.6, BUN 12 and creatinine 0.4. Troponins 0.039, 0.047, 0.034, 0.026. Amylase, lipase, AST, ALT, and alk phos are all normal. Cholesterol 153, LDL 91, triglycerides 48, HDL 52. 09/26: Percent, mild mitral regurgitation, mild tricuspid regurgitation, mild pulmonary hypertension. Patient underwent heart catheterization with Dr. Smith that showed normal coronary arteries. Normal end diastolic pressure. Patient underwent open cholecystectomy with gangrenous cholecystitis. Dr. Rick is also following from infectious disease for antibiotic recommendations. Patient currently denies any chest pain or shortness of breath. She did have a bowel movement last night. She is tolerating clear liquid diet. She does complain of abdominal pain related to surgical discomfort. Liver enzymes slightly elevated. Last evening patient had a blood pressure 170/81 and Lopressor 25 mg twice daily was added. Gen: This is a 69-year-old female in no acute distress. Afebrile, heart rate 58, blood pressure 119/63, pulse ox 97% on room air HEENT: Head is atraumatic, normocephalic. Pupils equal, round. Sclerae is anicteric. NECK: Supple. No JVD. No lymphadenopathy. No thyromegaly. LUNGS: Clear to auscultation. No wheezes or rhonchi. No intercostal retractions. HEART: Regular rate and rhythm. No murmur. ABDOMEN: Soft. Bowel sounds are present. No masses. Mild tenderness JEFF drain in place. EXTREMITIES: No pedal edema. No calf tenderness. NEUROLOGICAL: Patient is awake, alert and oriented x3. Cranial nerves 2 through 12 are grossly intact. Assessment: Acute coronary syndrome ruled out status post heart catheterizing Acute gangrenous cholecystitis Mild elevation in liver function tests and leukocytosis secondary to cholecystitis Hypertension Hypothyroidism Plan: Continue current plan per general surgery Continue Lopressor 25 mg twice daily, losartan 25 mg daily Continue antibiotics per Dr. Rick Further recommendations based on clinical course. Nurse practitioner note has been reviewed, I agree with documented findings and plan of care. Patient was seen and examined. Objective - Vital Signs Vital signs: Vital Signs Temp 98.1 F 09/26/19 08:05 Pulse 58 L 09/26/19 11:20 Resp 16 09/26/19 11:20 BP 119/63 09/26/19 11:20 Pulse Ox 97 09/26/19 11:20 Intake & Output 09/25/19 09/26/19 09/26/19 18:59 06:59 18:59 Intake Total 1210 360 Output Total 50 50 70 Balance 1160 -50 290 Weight 57.3 kg Intake: IV 1150 Oral 60 360 Output: Drainage 50 70 Right Lower Abdomen 50 70 Estimated Blood Loss 50 Other: Voiding Method Toilet Toilet # Voids 1 - Labs CBC & Chem 7: 09/26/19 06:32 09/26/19 06:32 Labs: Abnormal Lab Results - Last 24 Hours (Table) 09/25/19 09/26/19 09/26/19 Range/Units 16:10 06:32 06:32 WBC 13.2 H (3.8-10.6) k/uL RBC 3.51 L (3.80-5.40) m/uL Hgb 11.0 L (11.4-16.0) gm/dL Hct 33.5 L (34.0-46.0) % Neutrophils # 11.6 H (1.3-7.7) k/uL Potassium 3.4 L (3.5-5.1) mmol/L Chloride 108 H (98-107) mmol/L Glucose 115 H (74-99) mg/dL Calcium 8.1 L (8.4-10.2) mg/dL AST 58 H (14-36) U/L ALT 55 H (9-52) U/L Total Protein 5.2 L (6.3-8.2) g/dL Albumin 2.6 L (3.5-5.0) g/dL Microbiology - Last 24 Hours (Table) 09/25/19 15:07 Gram Stain - Preliminary Other - Other Wound Culture - Preliminary 09/25/19 15:07 Anaerobic Culture - Preliminary Other - Other
--- NOTE | 2019-09-26 17:13 | PN ---
PROGRESS NOTE DATE OF SERVICE: 09/26/2019 REASON FOR FOLLOW UP: Cholecystitis. INTERVAL HISTORY: The patient is currently afebrile. Patient is breathing comfortably. Denies having any chest pain. No shortness of breath or cough. No further nausea. No vomiting and no diarrhea. PHYSICAL EXAMINATION: Blood pressure 130/70 with a pulse of 59, temperature 98. She is 97% on room air. General description is an elderly female, lying in bed in no distress. Respiratory system: Unlabored breathing, clear to auscultation anteriorly. Heart S1, S2. Regular rate and rhythm. Abdomen soft, no tenderness. Extremities, no edema of the feet. LABS: White count down to 13.2 with a creatinine 0.53. ALT, AST mildly elevated. Blood culture not done. Abdominal cultures currently pending. DIAGNOSTIC IMPRESSION AND PLAN: Patient with acute cholecystitis status post open cholecystectomy with no evidence of any perforation. Patient is currently covered with Zosyn. We will follow up on the cultures to determine discharge antibiotics and continue supportive care. MMODL / IJN: [id number] /
[2019-09-27] MEDS: PIPERACILLIN-TAZOBACTAM 3.375 GM in SODIUM CHLORIDE 0.9% 100 ML IVPB SCH ×4 (00:23→23:18)
[2019-09-27 06:55] LABS: Basophils % (A) 0 %; Eosinophils # (A) 0.1 k/uL (0-0.7); Eosinophils % (A) 2 %; HCT 33.1 % (34.0-46.0); HGB 10.9 gm/dL (11.4-16.0); Lymphocytes # (A) 1.3 k/uL (1.0-4.8); Lymphocytes % (A) 19 %; MCH 31.3 pg (25.0-35.0); MCV 94.9 fL (80.0-100.0); Mean Platelet Volume 5.6; Monocytes # (A) 0.3 k/uL (0-1.0); Monocytes % (A) 4 %; Neutrophils % (A) 74 %; Platelet Count 284 k/uL (150-450); RBC 3.49 m/uL (3.80-5.40); RDW 11.8 % (11.5-15.5); WBC 6.8 k/uL (3.8-10.6)
[2019-09-27 07:00] LABS: ALT 46 U/L (9-52); AST 39 U/L (14-36); African American GFR (CKD) >90 (>60 ml/min/1.73 sqM); Albumin 2.6 g/dL (3.5-5.0); Alkaline Phosphatase 91 U/L (38-126); Anion Gap 7 mmol/L; Blood Urea Nitrogen 11 mg/dL (7-17); Calcium 7.6 mg/dL (8.4-10.2); Carbon Dioxide 26 mmol/L (22-30); Chloride 107 mmol/L (98-107); Glucose 101 mg/dL (74-99); Potassium 3.8 mmol/L (3.5-5.1); Sodium 140 mmol/L (137-145); Total Bilirubin 0.6 mg/dL (0.2-1.3); Total Protein 5.2 g/dL (6.3-8.2)
[2019-09-27] MEDS: SODIUM CHLORIDE 0.9% 1,000 ML IV SCH ×3 (07:01→23:18)
[2019-09-27] MEDS: HYDROcodone/APAP 5-325MG 1 EACH TAB PO PRN ×3 (08:12→17:15)
[2019-09-27] MEDS: METOPROLOL TARTRATE 25 MG TAB PO SCH (08:12)
[2019-09-27] MEDS: HEPARIN SODIUM,PORCINE 5,000 UNIT/ML 1 ML VIAL SQ SCH ×2 (08:12→21:01)
[2019-09-27] MEDS: LOSARTAN 25 MG TAB PO SCH (08:12)
[2019-09-27] MEDS: PANTOPRAZOLE 40 MG/10 ML VIAL IVP SCH (08:12)
--- NOTE | 2019-09-27 11:48 | P.PN ---
Subjective Progress Note Date: 09/27/19 Principal diagnosis: Acute cholecystitis Patient doing well today. Pain is well-controlled. Tolerating liquids. Liver enzymes improved. White blood cell count normal. Cultures thus far negative. She is afebrile. Objective - Vital Signs Vital signs: Vital Signs Temp 98.9 F 09/27/19 08:10 Pulse 77 09/27/19 08:10 Resp 16 09/27/19 08:10 BP 182/86 09/27/19 08:10 Pulse Ox 92 L 09/27/19 08:10 Intake & Output 09/26/19 09/27/19 09/27/19 18:59 06:59 18:59 Intake Total 1560 240 Output Total 1290 1440 Balance 270 -1200 Weight 57.5 kg 57.5 kg Intake: Intake, IV Titration 600 Amount Sodium Chloride 0.9% 1, 600 000 ml @ 75 mls/hr IV . [id number] Rx#:[id number] Oral 960 240 Output: Drainage 90 40 Right Lower Abdomen 90 40 Urine 1200 1400 Other: Voiding Method Toilet Toilet Toilet # Voids 3 - Exam Having: Soft, nondistended, dressing intact, drain serosanguineous - Labs CBC & Chem 7: 09/27/19 06:16 09/27/19 06:16 Labs: Abnormal Lab Results - Last 24 Hours (Table) 09/27/19 09/27/19 Range/Units 06:16 06:16 RBC 3.49 L (3.80-5.40) m/uL Hgb 10.9 L (11.4-16.0) gm/dL Hct 33.1 L (34.0-46.0) % Creatinine 0.49 L (0.52-1.04) mg/dL Glucose 101 H (74-99) mg/dL Calcium 7.6 L (8.4-10.2) mg/dL AST 39 H (14-36) U/L Total Protein 5.2 L (6.3-8.2) g/dL Albumin 2.6 L (3.5-5.0) g/dL Microbiology - Last 24 Hours (Table) 09/25/19 16:10 Blood Culture - Preliminary Blood No Growth after 24 hours 09/25/19 16:15 Blood Culture - Preliminary Blood No Growth after 24 hours 09/25/19 15:07 Gram Stain - Preliminary Other - Other Wound Culture - Preliminary Assessment and Plan (1) Acute cholecystitis Narrative/Plan: Will increase diet as tolerated. May shower. Keep drain for now. Continue ambulation. Continue anabiotic. Await cultures. Current Visit: Yes Status: Acute Code(s): K81.0 - ACUTE CHOLECYSTITIS SNOMED Code(s): 79347932
--- NOTE | 2019-09-27 12:36 | P.PN ---
Subjective patient is admitted for abdominal pain nausea vomiting found to have gangrenous cholecystitis and patient underwent cholecystectomy patient is presently on Zosyn clinically doing well abdominal pain significantly improved did pass gas bowel sounds are sluggish. Had a small bowel movement as well.patient is tolerating clear liquid diet well. 09/27/2019 Clinically doing well with surgery didn't clear her for discharge at patient is tolerating diet well antibiotics as per infectious disease patient did have a bowel movement yesterday passing gas today Constitutional: Denied any fatigue denied any fever. Cardio vascular: denied any chest pain, palpitations Gastrointestinal denied any nausea vomiting Pulmonary: Denied any shortness of breath cough Neurologic denied any new focal deficits All inpatient medications were reviewed and appropriate changes in these medications as dictated in the interval history and assessment and plan. Objective - Vital Signs Vital signs: Vital Signs Temp 98.9 F 09/27/19 08:10 Pulse 60 09/27/19 11:30 Resp 16 09/27/19 11:30 BP 177/77 09/27/19 11:30 Pulse Ox 96 09/27/19 11:30 Intake & Output 09/26/19 09/27/19 09/27/19 18:59 06:59 18:59 Intake Total 1560 240 Output Total 1290 1440 Balance 270 -1200 Weight 57.5 kg 57.5 kg Intake: Intake, IV Titration 600 Amount Sodium Chloride 0.9% 1, 600 000 ml @ 75 mls/hr IV . [id number] [facility] Rx#:[id number] Oral 960 240 Output: Drainage 90 40 Right Lower Abdomen 90 40 Urine 1200 1400 Other: Voiding Method Toilet Toilet Toilet # Voids 3 - Exam PHYSICAL EXAMINATION: GENERAL: The patient is alert and oriented x3, not in any acute distress. Well developed, well nourished. HEENT: Pupils are round and equally reacting to light. EOMI. No scleral icterus. No conjunctival pallor. Normocephalic, atraumatic. No pharyngeal erythema. No thyromegaly. CARDIOVASCULAR: S1 and S2 present. No murmurs, rubs, or gallops. PULMONARY: Chest is clear to auscultation, no wheezing or crackles. ABDOMEN: Soft,bowel sounds are sluggish there is no significant tenderness surgical site areas of pain. MUSCULOSKELETAL: No joint swelling or deformity. EXTREMITIES: No cyanosis, clubbing, or pedal edema. NEUROLOGICAL: Gross neurological examination did not reveal any focal deficits. SKIN: No rashes. - Labs CBC & Chem 7: 09/27/19 06:16 09/27/19 06:16 Labs: Abnormal Lab Results - Last 24 Hours (Table) 09/27/19 09/27/19 Range/Units 06:16 06:16 RBC 3.49 L (3.80-5.40) m/uL Hgb 10.9 L (11.4-16.0) gm/dL Hct 33.1 L (34.0-46.0) % Creatinine 0.49 L (0.52-1.04) mg/dL Glucose 101 H (74-99) mg/dL Calcium 7.6 L (8.4-10.2) mg/dL AST 39 H (14-36) U/L Total Protein 5.2 L (6.3-8.2) g/dL Albumin 2.6 L (3.5-5.0) g/dL Microbiology - Last 24 Hours (Table) 09/25/19 16:10 Blood Culture - Preliminary Blood No Growth after 24 hours 09/25/19 16:15 Blood Culture - Preliminary Blood No Growth after 24 hours 09/25/19 15:07 Gram Stain - Preliminary Other - Other Wound Culture - Preliminary Assessment and Plan Plan: -gangrenous cholecystitis: Continue with antibiotics patient is status post cholecystectomy.possibly of discharge tomorrow -Mildly elevated troponin: Secondary to sepsis from a gangrenous, cystitis no evidence of myocardial infarction.will not need beta arron anymore. Patient had a cardiac catheterization which did not show any coronary atherosclerotic occlusive disease -Hypertension -Hypothyroidism
--- NOTE | 2019-09-27 16:28 | PN ---
PROGRESS NOTE DATE OF SERVICE: 09/27/2019. REASON FOR FOLLOWUP: Acute cholecystitis. INTERVAL HISTORY: The patient is currently afebrile. Patient is breathing comfortably. The patient denies having any chest pain. No shortness of breath or cough. No nausea, vomiting. No abdominal pain. No diarrhea. The patient did not have any bowel movement. PHYSICAL EXAMINATION: Blood pressure 136/68 with a pulse of 60. Temperature 97.8. She is 97% on room air. General description is an elderly female, lying in bed in no distress. Respiratory system: Unlabored breathing, clear to auscultation anteriorly. Heart is S1, S2. Regular rate and rhythm. Abdomen soft. No tenderness. Extremities: No edema of the feet. The JEFF drain did have minimal blood tinged secretions. LABS: Hemoglobin is 10.2, white count 6.8. BUN of 11, creatinine 0.49. The abdominal culture so far pending. Blood culture has been negative. DIAGNOSTIC IMPRESSION AND PLAN: Patient with acute cholecystitis status post open cholecystectomy. The patient is clinically responding to Zosyn. To continue with white count normalized. We will wait for the culture to finalize to determine her discharge antibiotics and continue supportive care. MMODL / IJN: [id number] /
[2019-09-28] MEDS: SODIUM CHLORIDE 0.9% 1,000 ML IV SCH ×3 (00:46→20:44)
[2019-09-28] MEDS: LEVOTHYROXINE 25 MCG TAB PO SCH (06:01)
[2019-09-28 06:33] LABS: Basophils % (A) 0 %; Eosinophils # (A) 0.1 k/uL (0-0.7); Eosinophils % (A) 3 %; HCT 33.3 % (34.0-46.0); HGB 11.1 gm/dL (11.4-16.0); Lymphocytes % (A) 19 %; MCH 31.4 pg (25.0-35.0); MCHC 33.4 g/dL (31.0-37.0); MCV 93.9 fL (80.0-100.0); Mean Platelet Volume 5.4; Monocytes # (A) 0.2 k/uL (0-1.0); Monocytes % (A) 4 %; Neutrophils # (A) 3.8 k/uL (1.3-7.7); Neutrophils % (A) 72 %; Platelet Count 281 k/uL (150-450); RBC 3.55 m/uL (3.80-5.40); RDW 11.8 % (11.5-15.5); WBC 5.3 k/uL (3.8-10.6)
[2019-09-28 06:49] LABS: ALT 44 U/L (9-52); AST 29 U/L (14-36); African American GFR (CKD) >90 (>60 ml/min/1.73 sqM); Albumin 2.3 g/dL (3.5-5.0); Alkaline Phosphatase 82 U/L (38-126); Anion Gap 6 mmol/L; Blood Urea Nitrogen 5 mg/dL (7-17); Calcium 6.6 mg/dL (8.4-10.2); Carbon Dioxide 24 mmol/L (22-30); Chloride 110 mmol/L (98-107); Glucose 89 mg/dL (74-99); Potassium 2.8 mmol/L (3.5-5.1); Sodium 140 mmol/L (137-145); Total Bilirubin 0.5 mg/dL (0.2-1.3); Total Protein 4.7 g/dL (6.3-8.2)
[2019-09-28] MEDS: PANTOPRAZOLE 40 MG/10 ML VIAL IVP SCH (09:12)
[2019-09-28] MEDS: PIPERACILLIN-TAZOBACTAM 3.375 GM in SODIUM CHLORIDE 0.9% 100 ML IVPB SCH ×3 (09:12→23:22)
[2019-09-28] MEDS: HEPARIN SODIUM,PORCINE 5,000 UNIT/ML 1 ML VIAL SQ SCH ×2 (09:12→20:44)
[2019-09-28] MEDS: LOSARTAN 25 MG TAB PO SCH (09:12)
[2019-09-28] MEDS: POTASSIUM CHLORIDE ER 20 MEQ TAB.ER PO SCH ×3 (09:12→11:18)
[2019-09-28] MEDS ORDERED: Magnesium Replacement Protocol 1 EACH MISC MISCELLANE PRN (09:41)
[2019-09-28] MEDS: CALCIUM CARBONATE 500 MG CHEWABLE PO SCH (10:14)
[2019-09-28] MEDS: MAGNESIUM SULFATE-D5W PMX 1 GM in DEXTROSE/WATER 1 100ML.BAG IVPB SCH ×2 (10:22→11:18)
--- NOTE | 2019-09-28 12:08 | P.PN ---
Subjective Progress Note Date: 09/28/19 This is a pleasant 69-year-old nondiabetic female with medical history of hypertension, thyroid disorder, nonsmoker, presented to the ER with complaints of mid epigastric pain radiating to left rib cage and lower back. Patient reports a week ago, she developed chills, aches, malaise, no fevers.She stayed in bed and slept majority of this time, lasting 4 days. Recovered, regained normal diet intake. Saturday, consumed a cheeseburger,developed indigestion with significant mid epigastric pain radiating to left rib cage and to her lower back around midnight. Saturday morning, began having frequent nausea, vomiting and diarrhea, approximately 5 times accompanied by diaphoresis. Yellow Emesis with clear watery diarrhea. Denies exposure to anyone sick with a viral or influenza. 2 years ago had similar presentation, with a cardiac workup-she reports negative- completed at [facility]. Chest x-ray reporting mild pleural fluid at the lateral left lung base, slight blunting left costophrenic angle with some flattening of the diaphragm. Abdominal ultrasound reports numerous small gallstones, no dilated ducts, mild gallbladder wall prominence with possible cholecystitis, gallbladder measures 4 cm in diameter and 9.45 cm in length. EKG reported normal sinus rhythm, nonspecific T-wave abnormality, prolonged QT. Mild elevation of troponins; 0.039, 0.047, 0.034, 0.026. Triglycerides 48, cholesterol 153, LDL 91, HDL 52. Sodium 138, potassium 3.6, BUN 12, creatinine 0.43. LFTs, amylase, lipase within normal limits. UA reporting moderate blood, 1+ ketones, negative for leukocytes. T- max 99.5, WBC 14.1 on admission, further increased to 16 this morning. VSS. This morning pain currently complaining of mid epigastric and right upper quadrant. No nausea, vomiting and diarrhea resolved. Denies chest pain, palpitations or shortness of breath. Denies lightheadedness, dizziness or focal deficits. Received IV antibiotics of Rocephin in the ER, now on Zosyn, IV fluid hydration. Heparin drip initially started, then canceled in the ER as per admitting/ cardiology. 09/25/2019 evaluated by cardiology yesterday, recommending cardiac catheterization. Patient underwent left heart catheterization reporting normal coronary arteries, normal end-diastolic pressures. Evaluated by surgery. Abdominal/pelvis ultrasound with oral contrast only performed last night reporting minimal right-sided hydronephrosis with. Nephrotic fluid possible pyelonephritis with no obstructing calculus seen- right ureter not dilated, dilated gallbladder with gallstones, wall thickening consistent with cholecystitis, thickening of the descending duodenum consistent with inflammat ory process, 1.5 cm enlarged left periaortic lymph node, possible lymphoma. Discussed CT results with Dr. Fuentes who had further reviewed films with radiologist, doubt malignancy-suspecting severe cholecystitis/gangrenous. Surgery pending. T-max 99.6, labs pending. Stool culture obtained, ruling out C. difficile colitis. 09/28/2019 tolerating low fat diet with no nausea vomiting or diarrhea. Positive bowel movement yesterday. Afebrile, normal WBC. Anaerobic wound culture reporting rare E. coli. Preliminary blood cultures, anaerobic culture pending. LFTs within normal limits. Albumin 2.3. Potassium 2.8, magnesium 1.6. Hemoglobin 11.1. Incentive spirometer up to 1000, intubated in hallway this morning, tolerated exertion well. Hypertensive, repeat blood pressure pending. Objective - Vital Signs Vital signs: Vital Signs Temp 98.1 F 09/28/19 08:00 Pulse 76 09/28/19 08:00 Resp 16 09/28/19 08:00 BP 189/92 09/28/19 08:00 Pulse Ox 96 09/28/19 08:00 Intake & Output 09/27/19 09/28/19 09/28/19 18:59 06:59 18:59 Intake Total 850 240 480 Output Total 10 1590 Balance 840 -1350 480 Weight 57.5 kg 56.2 kg Intake: Intake, IV Titration 700 Amount Piperacillin-Tazobactam 3 100 .375 gm In Sodium Chloride 0.9% 100 ml @ 25 mls/hr IVPB Q8HR [facility] Rx# :[id number] Sodium Chloride 0.9% 1, 600 000 ml @ 75 mls/hr IV . [id number] [facility] Rx#:[id number] Oral 150 240 480 Output: Drainage 10 40 Right Lower Abdomen 10 40 Urine 1550 Other: Voiding Method Toilet Toilet # Voids 2 # Bowel Movements 1 - Exam VITAL SIGNS: As above GENERAL: Sitting up in bed, no acute distress, HEENT: Pale, Conjunctivae normal. eyes normal. Oral mucosa moist. NECK: No JVD. No thyroid enlargement. No LNs CARDIOVASCULAR: S1, S2 regular. No murmur, rub or gallop RESPIRATION: Breath sounds clear, diminished in the bases. No rhonchi or crackles. No wheezing. ABDOMEN: Soft, status post surgery , mild tenderness.No guarding. JEFF drain present with minimal serosanguineous drainage. Positive Bowel sounds. LEGS: No edema. no swelling. No clubbing, no cyanosis, no calf tenderness. PSYCHIATRY: Alert and oriented X3, mood and affect normal. NERVOUS SYSTEM: Cranial N 2-12 grossly normal. Moves all 4 limbs. No focal deficits. Strength and sensation grossly intact.. Skin: no lesions, no rash. - Labs CBC & Chem 7: 09/28/19 05:57 09/28/19 05:57 Labs: Abnormal Lab Results - Last 24 Hours (Table) 09/28/19 09/28/19 Range/Units 05:57 05:57 RBC 3.55 L (3.80-5.40) m/uL Hgb 11.1 L (11.4-16.0) gm/dL Hct 33.3 L (34.0-46.0) % Potassium 2.8 L (3.5-5.1) mmol/L Chloride 110 H (98-107) mmol/L BUN 5 L (7-17) mg/dL Creatinine 0.39 L (0.52-1.04) mg/dL Calcium 6.6 L (8.4-10.2) mg/dL Total Protein 4.7 L (6.3-8.2) g/dL Albumin 2.3 L (3.5-5.0) g/dL Microbiology - Last 24 Hours (Table) 09/25/19 15:07 Anaerobic Culture - Preliminary Other - Other 09/25/19 16:15 Blood Culture - Preliminary Blood No Growth after 48 hours 09/25/19 16:10 Blood Culture - Preliminary Blood No Growth after 48 hours 09/25/19 15:07 Gram Stain - Final Other - Other Wound Culture - Final Escherichia coli Assessment and Plan Assessment: -Sepsis, present on admission secondary to Acute gangrenous cholecystitis, status post open cholecystectomy. Aerobic wound culture reporting rare E. coli. -Suspect infiltrative process secondary to cholelithiasis ,recommend outpatient follow-up CT -Mild elevated troponins with nonspecific T-wave abnormality per EKG, in a patient with mid epigastric pain, status post a catheterization reporting normal coronaries. Acute coronary syndrome ruled out. -possible passage of renal calculi, right nonobstructive hydronephrosis per CT -Hypertension -Hypothyroidism -Hypokalemia -Hypomagnesemia Plan: Continue on current medication regime, monitoring and symptomatically treatment. Potassium and magnesium supplements ordered with follow-up repeat labs this afternoon, as per replacement protocols .Aggressive pulmonary toileting with incentive spirometer reinforced, new goals set of 1500. Final anaerobic, blood cultures pending. Continue IV antibiotics as per ID. Increase ambulation as tolerated. Diet advancement as per surgery. Discharge planning in progress for tomorrow pending surgery/ID clearance. The impression and plan of care has been dictated as directed. : I performed a history and examination of this patient, discussed the same with the dictator. I agree with the dictator's note ,documented as a scribe. Any additional findings or plans will be noted.
--- NOTE | 2019-09-28 12:12 | P.PN ---
<Patsy Karimi Aracely - Last Filed: 09/28/19 12:08> Subjective Progress Note Date: 09/28/19 CHIEF COMPLAINT: Epigastric discomfort HISTORY OF PRESENT ILLNESS: Patient is status post open cholecystectomy performed on 09/25/2019. Patient examined this morning the bedside. She report s her pain is tolerable at this time. She has been up ambulating twice this morning in the hallway. She reports decreased appetite. Denies nausea or vomiting. WBC 5.3. Hemoglobin 11.1. Potassium 2.8. Magnesium 1.6. Wound culture positive for E. coli. Blood cultures negative at 48 hours. PHYSICAL EXAM: VITAL SIGNS: Reviewed. GENERAL: Well-developed in no acute distress. HEENT: No sclera icterus. Extraocular movements grossly intact. Moist buccal mucosa. Head is atraumatic, normocephalic. ABDOMEN: Soft. Nondistended. Dressing clean dry and intact. Nontender. JEFF drain with serosanguineous drainage. NEUROLOGIC: Alert and oriented. Cranial nerves II through XII grossly intact. ASSESSMENT: 1. Abdominal pain, nausea, vomiting 2. Acute cholecystitis 3. Elevated troponins PLAN: Continue JEFF drain. Continue diet as tolerated. Replace potassium and magnesium. Continue antibiotics. Increase activity as tolerated. Incentive spirometry. Anticipate discharge home tomorrow. Nurse practitioner note has been reviewed by physician. Signing provider agrees with the documented findings, assessment, and plan of care. Objective - Vital Signs Vital signs: Vital Signs Temp 98.1 F 09/28/19 08:00 Pulse 81 09/28/19 11:17 Resp 16 09/28/19 11:17 BP 159/86 09/28/19 11:17 Pulse Ox 96 09/28/19 11:17 Intake & Output 09/27/19 09/28/19 09/28/19 18:59 06:59 18:59 Intake Total 850 240 480 Output Total 10 1590 Balance 840 -1350 480 Weight 57.5 kg 56.2 kg Intake: Intake, IV Titration 700 Amount Piperacillin-Tazobactam 3 100 .375 gm In Sodium Chloride 0.9% 100 ml @ 25 mls/hr IVPB Q8HR [facility] Rx# :[id number] Sodium Chloride 0.9% 1, 600 000 ml @ 75 mls/hr IV . [id number] [facility] Rx#:[id number] Oral 150 240 480 Output: Drainage 10 40 Right Lower Abdomen 10 40 Urine 1550 Other: Voiding Method Toilet Toilet # Voids 2 # Bowel Movements 1 - Labs CBC & Chem 7: 09/28/19 05:57 09/28/19 05:57 Labs: Abnormal Lab Results - Last 24 Hours (Table) 09/28/19 09/28/19 Range/Units 05:57 05:57 RBC 3.55 L (3.80-5.40) m/uL Hgb 11.1 L (11.4-16.0) gm/dL Hct 33.3 L (34.0-46.0) % Potassium 2.8 L (3.5-5.1) mmol/L Chloride 110 H (98-107) mmol/L BUN 5 L (7-17) mg/dL Creatinine 0.39 L (0.52-1.04) mg/dL Calcium 6.6 L (8.4-10.2) mg/dL Total Protein 4.7 L (6.3-8.2) g/dL Albumin 2.3 L (3.5-5.0) g/dL Microbiology - Last 24 Hours (Table) 09/25/19 15:07 Anaerobic Culture - Preliminary Other - Other 09/25/19 16:15 Blood Culture - Preliminary Blood No Growth after 48 hours 09/25/19 16:10 Blood Culture - Preliminary Blood No Growth after 48 hours 09/25/19 15:07 Gram Stain - Final Other - Other Wound Culture - Final Escherichia coli <Tej Fuentes - Last Filed: 09/28/19 17:36> Subjective As above. Patient continues to do better than expected. Cultures did show E. coli. Continue IV antibiotics. Continue diet as tolerated. Plan discharge tomorrow and we'll remove JEFF drain prior to discharge if doing well. Objective - Vital Signs Vital signs: Vital Signs Temp 98.1 F 09/28/19 08:00 Pulse 77 09/28/19 16:00 Resp 16 09/28/19 16:00 BP 166/79 09/28/19 16:00 Pulse Ox 96 09/28/19 16:00 Intake & Output 09/27/19 09/28/19 09/28/19 18:59 06:59 18:59 Intake Total 341 119 5730 Output Total 10 1590 Balance 840 -1350 1230 Weight 57.5 kg 56.2 kg Intake: Intake, IV Titration 700 750 Amount Magnesium Sulfate-D5w Pmx 200 1 gm In Dextrose/Water 1 100ml.bag @ 100 mls/hr IVPB Q1H [facility] Rx#: [id number] Piperacillin-Tazobactam 3 100 100 .375 gm In Sodium Chloride 0.9% 100 ml @ 25 mls/hr IVPB Q8HR [facility] Rx# :[id number] Sodium Chloride 0.9% 1, 600 450 000 ml @ 75 mls/hr IV . [id number] [facility] Rx#:[id number] Oral 150 240 480 Output: Drainage 10 40 Right Lower Abdomen 10 40 Urine 1550 Other: Voiding Method Toilet Toilet # Voids 2 2 # Bowel Movements 1 - Labs CBC & Chem 7: 09/28/19 05:57 09/28/19 14:25 Labs: Abnormal Lab Results - Last 24 Hours (Table) 09/28/19 09/28/19 09/28/19 Range/Units 05:57 05:57 14:25 RBC 3.55 L (3.80-5.40) m/uL Hgb 11.1 L (11.4-16.0) gm/dL Hct 33.3 L (34.0-46.0) % Potassium 2.8 L (3.5-5.1) mmol/L Chloride 110 H (98-107) mmol/L BUN 5 L (7-17) mg/dL Creatinine 0.39 L (0.52-1.04) mg/dL Calcium 6.6 L (8.4-10.2) mg/dL Magnesium 2.5 H (1.6-2.3) mg/dL Total Protein 4.7 L (6.3-8.2) g/dL Albumin 2.3 L (3.5-5.0) g/dL Microbiology - Last 24 Hours (Table) 09/25/19 15:07 Anaerobic Culture - Preliminary Other - Other 09/25/19 16:15 Blood Culture - Preliminary Blood No Growth after 48 hours 09/25/19 16:10 Blood Culture - Preliminary Blood No Growth after 48 hours 09/25/19 15:07 Gram Stain - Final Other - Other Wound Culture - Final Escherichia coli Assessment and Plan (1) Acute cholecystitis Current Visit: Yes Status: Acute Code(s): K81.0 - ACUTE CHOLECYSTITIS SNOMED Code(s): 90857432
--- NOTE | 2019-09-28 14:16 | PN ---
PROGRESS NOTE DATE OF SERVICE: 09/28/2019 REASON FOR FOLLOWUP: Acute cholecystitis. INTERVAL HISTORY: The patient is currently afebrile. Patient is breathing comfortably. Denies having any chest pain or cough. No nausea, vomiting, abdominal pain or diarrhea. PHYSICAL EXAMINATION: Blood pressure is 159/86, pulse of 81, temperature 98.1, she is 96% on room air. General description is an elderly female, lying in bed in no distress. RESPIRATORY SYSTEM: Unlabored breathing, clear to auscultation anteriorly. HEART: S1, S2. Regular rate and rhythm. ABDOMEN: Soft, no tenderness. EXTREMITIES: No edema of the feet. LABS: Hemoglobin is 11.1, white count 5.2, BUN of 8, creatinine 0.39. Abdominal culture positive for E coli. DIAGNOSTIC IMPRESSION AND PLAN: Patient with acute cholecystitis with abdominal culture, currently showing Escherichia coli which is sensitive pathogen. Patient is on Zosyn. Plan to finish therapy with oral Augmentin 875 b.i.d. for about 10 days. Script was sent to the pharmacy. Continue supportive care. MMODL / IJN: [id number] /
[2019-09-28 14:53] LABS: Magnesium 2.5 mg/dL (1.6-2.3); Potassium 4.4 mmol/L (3.5-5.1)
[2019-09-28 21:17] VITALS: RESP 18
[2019-09-29] MEDS: LEVOTHYROXINE 25 MCG TAB PO SCH (06:42)
[2019-09-29] MEDS ORDERED: PANTOPRAZOLE 40 MG TABLET PO SCH (07:30)
[2019-09-29] MEDS: PIPERACILLIN-TAZOBACTAM 3.375 GM in SODIUM CHLORIDE 0.9% 100 ML IVPB SCH (09:37)
[2019-09-29] MEDS: HEPARIN SODIUM,PORCINE 5,000 UNIT/ML 1 ML VIAL SQ SCH (09:38)
[2019-09-29] MEDS: LOSARTAN 25 MG TAB PO SCH (09:38)
[2019-09-29] MEDS: CALCIUM CARBONATE 500 MG CHEWABLE PO SCH (09:38)
--- NOTE | 2019-09-29 10:16 | P.DS ---
Providers Date of admission: 09/23/19 22:27 Expected date of discharge: 09/29/19 Attending physician: Dung Olguin Consults: 09/23/19 21:19 Consult Physician Urgent Consulting Provider: Hugo Zelaya Consult Reason/Comments: elevated troponin, gall stones, vague epigastric pain Do you want consulting provider notified?: Yes, Notify in am 09/23/19 22:26 Consult Physician Urgent Consulting Provider: Tej Fuentes Consult Reason/Comments: epigastric discomfort, Do you want consulting provider notified?: Yes, Notify in am 09/25/19 15:39 Consult Physician Routine Consulting Provider: Swathi Rick Consult Reason/Comments: gangrenous GB/severe cholecystitis Do you want consulting provider notified?: Yes Primary care physician: Dung Olguin Hospital Course: Final Diagnoses: -Sepsis, present on admission secondary to Acute gangrenous cholecystitis, status post open cholecystectomy. Aerobic wound culture reporting rare E. coli. -Suspect infiltrative process secondary to cholelithiasis ,recommend outpatient follow-up CT -Mild elevated troponins with nonspecific T-wave abnormality per EKG, in a patient with mid epigastric pain, status post a catheterization reporting normal coronaries. Acute coronary syndrome ruled out. -Possible passage of renal calculi, right nonobstructive hydronephrosis per CT -Hypertension -Hypothyroidism Hospital course:This is a pleasant 69-year-old nondiabetic female with medical history of hypertension, thyroid disorder, nonsmoker, presented to the ER with complaints of mid epigastric pain radiating to left rib cage and lower back. Patient reports a week ago, she developed chills, aches, malaise, no fevers.She stayed in bed and slept majority of this time, lasting 4 days. Recovered, regained normal diet intake. Saturday, consumed a cheeseburger,developed indigestion with significant mid epigastric pain radiating to left rib cage and to her lower back around midnight. Saturday morning, began having frequent nausea, vomiting and diarrhea, approximately 5 times accompanied by diaphoresis. Yellow Emesis with clear watery diarrhea. Denies exposure to anyone sick with a viral or influenza. 2 years ago had similar presentation, with a cardiac workup-she reports negative- completed at [facility]. Chest x-ray reporting mild pleural fluid at the lateral left lung base, slight blunting left costophrenic angle with some flattening of the diaphragm. Abdominal ultrasound reports numerous small gallstones, no dilated ducts, mild gallbladder wall prominence with possible cholecystitis, gallbladder measures 4 cm in diameter and 9.45 cm in length. EKG reported normal sinus rhythm, nonspecific T-wave abnormality, prolonged QT. Mild elevation of troponins; 0.039, 0.047, 0.034, 0.026. Triglycerides 48, cholesterol 153, LDL 91, HDL 52. Sodium 138, potassium 3.6, BUN 12, creatinine 0.43. LFTs, amylase, lipase within normal limits. UA reporting moderate blood, 1+ ketones, negative for le ukocytes. T-max 99.5, WBC 14.1 on admission, further increased to 16 this morning. VSS. This morning pain currently complaining of mid epigastric and right upper quadrant. No nausea, vomiting and diarrhea resolved. Denies chest pain, palpitations or shortness of breath. Denies lightheadedness, dizziness or focal deficits. Received IV antibiotics of Rocephin in the ER, now on Zosyn, IV fluid hydration. Heparin drip initially started, then canceled in the ER as per admitting/ cardiology. 09/25/2019 evaluated by cardiology yesterday, recommending cardiac catheterization. Patient underwent left heart catheterization reporting normal coronary arteries, normal end-diastolic pressures. Evaluated by surgery. Abdominal/pelvis ultrasound with oral contrast only performed last night reporting minimal right-sided hydronephrosis with. Nephrotic fluid possible pyelonephritis with no obstructing calculus seen- right ureter not dilated, dilated gallbladder with gallstones, wall thickening consistent with cholecystitis, thickening of the descending duodenum consistent with inflammatory process, 1.5 cm enlarged left periaortic lymph node, possible lymphoma. Discussed CT results with Dr. Fuentes who had further reviewed films with radiologist, doubt malignancy-suspecting severe cholecystitis/gangrenous. Surgery pending. T-max 99.6, labs pending. Stool culture obtained, ruling out C. difficile colitis. Status post cholecystectomy, tolerated procedure well. Maintained on Zosyn as per infectious disease. Passing flatus. 09/28/2019 tolerating low fat diet with no nausea vomiting or diarrhea. Positive bowel movement yesterday. Afebrile, normal WBC. Anaerobic wound culture reporting rare E. coli. Preliminary blood cultures, anaerobic culture pending. LFTs within normal limits. Albumin 2.3. Potassium 2.8, magnesium 1.6. Hemoglobin 11.1. Incentive spirometer up to 1000, intubated in hallway this morning, tolerated exertion well. Hypertensive, repeat blood pressure pending. Passing flatus. Bowel movement yesterday. Significant clinical improvement. Discharge antibiotics in place as per infectious disease. Discharge home today in a stable condition with guarded prognosis, pending surgery clearance. - Exam GENERAL: Sitting up in bed, no acute distress, CARDIOVASCULAR: S1, S2 regular. No murmur, rub or gallop RESPIRATION: Breath sounds clear, diminished in the bases. No rhonchi or crackles. No wheezing. ABDOMEN: Soft, status post surgery , mild tenderness.No guarding. Dressing clean dry and intact, JEFF drain present. Positive Bowel sounds. NERVOUS SYSTEM: No focal deficits. Microbiology 09/25/19 16:10 Blood Blood Culture - Preliminary No Growth after 72 hours 09/25/19 16:15 Blood Blood Culture - Preliminary No Growth after 72 hours 09/25/19 15:07 Other - Other Anaerobic Culture - Preliminary 09/25/19 15:07 Other - Other Gram Stain - Final 09/25/19 15:07 Other - Other Wound Culture - Final Escherichia coli The impression and plan of care has been dictated as directed. : I performed a history and examination of this patient, discussed the same with the dictator. I agree with the dictator's note ,documented as a scribe. Any additional findings or plans will be noted. Patient Condition at Discharge: Stable Plan - Discharge Summary New Discharge Prescriptions: New Amoxic-Pot Clav 875-125Mg [Augmentin 875-125] 1 tab PO Q12HR #20 tablet Calcium Carbonate [Tums] 500 mg PO DAILY chew Continue Losartan [Cozaar] 25 mg PO DAILY Levothyroxine Sodium 25 mcg PO DAILY Discontinued Ibuprofen [Advil] 200 mg PO Q8HR PRN PRN Reason: Pain Discharge Medication List Levothyroxine Sodium 25 mcg PO DAILY 09/23/19 [History] Losartan [Cozaar] 25 mg PO DAILY 09/23/19 [History] Amoxic-Pot Clav 875-125Mg [Augmentin 875-125] 1 tab PO Q12HR #20 tablet 09/28/19 [Rx] Calcium Carbonate [Tums] 500 mg PO DAILY chew 09/28/19 [Rx] Follow up Appointment(s)/Referral(s): Tej Fuentes MD [Medical Doctor] - 1 Week Kirt Paez MD [STAFF PHYSICIAN] - 11/04/19 2:45 pm (Follow-up with Dr. Paez/Anita Smith/Irena Rodrigez in 4-6 weeks.) Dung Olguin DO [Primary Care Provider] - 3 Days Swathi Rick MD [STAFF PHYSICIAN] - 1 Week Ambulatory/Diagnostic Orders: Complete Blood Count w/diff [LAB.AMB] Time Frame: 3 Days, Location: None Selected Patient Instructions/Handouts: Wound Infection (DC), Low Fat Diet (DC), Sharan-Truong Drain Care (DC), After Radial Heart Catheterization (GEN), Open Cholecystectomy (DC) Activity/Diet/Wound Care/Special Instructions: Pain management as per surgery IS every hour 10 while awake 2 weeks Diet: Low-fat Activity: Limited until follow up -Suspect infiltrative process secondary to cholelithiasis ,recommend outpatient follow-up CT in 1 month. Discharge Disposition: HOME SELF-CARE
[2019-09-29 10:45] VITALS: BP 174/91; PULSE 80; TEMP 98.1
--- NOTE | 2019-09-29 12:04 | P.PN ---
<Patsy Karimi Aracely - Last Filed: 09/29/19 12:01> Subjective Progress Note Date: 09/29/19 CHIEF COMPLAINT: Epigastric discomfort HISTORY OF PRESENT ILLNESS: Patient is status post open cholecystectomy performed on 09/25/2019. Patient examined this morning the bedside. She denies abdominal pain. Tolerating diet. His nausea vomiting. JEFF drain with minimal output. PHYSICAL EXAM: VITAL SIGNS: Reviewed. GENERAL: Well-developed in no acute distress. HEENT: No sclera icterus. Extraocular movements grossly intact. Moist buccal mucosa. Head is atraumatic, normocephalic. ABDOMEN: Soft. Nondistended. Dressing clean dry and intact. Nontender. JEFF drain with serosanguineous drainage. NEUROLOGIC: Alert and oriented. Cranial nerves II through XII grossly intact. ASSESSMENT: 1. Abdominal pain, nausea, vomiting 2. Acute cholecystitis 3. Elevated troponins PLAN: Remove JEFF drain New optifoam dressings ordered. Nursing to change today. Stable for discharge home today on oral antibiotics Patient to follow up outpatient with Dr. Fuentes Nurse practitioner note has been reviewed by physician. Signing provider agrees with the documented findings, assessment, and plan of care. Objective - Vital Signs Vital signs: Vital Signs Temp 98.1 F 09/29/19 08:00 Pulse 80 09/29/19 08:00 Resp 18 09/29/19 08:00 BP 174/91 09/29/19 08:00 Pulse Ox 97 09/29/19 08:00 Intake & Output 09/28/19 09/29/19 09/29/19 18:59 06:59 18:59 Intake Total 1470 150 240 Output Total 540 Balance 1470 -390 240 Weight 54.7 kg Intake: Intake, IV Titration 750 150 Amount Magnesium Sulfate-D5w Pmx 200 1 gm In Dextrose/Water 1 100ml.bag @ 100 mls/hr IVPB Q1H [facility] Rx#: [id number] Piperacillin-Tazobactam 3 100 .375 gm In Sodium Chloride 0.9% 100 ml @ 25 mls/hr IVPB Q8HR [facility] Rx# :[id number] Sodium Chloride 0.9% 1, 450 150 000 ml @ 75 mls/hr IV . [id number] [facility] Rx#:[id number] Oral 720 240 Output: Drainage 40 Right Lower Abdomen 40 Urine 500 Other: Voiding Method Toilet Toilet # Voids 2 - Labs CBC & Chem 7: 09/28/19 05:57 09/28/19 14:25 Labs: Abnormal Lab Results - Last 24 Hours (Table) 09/28/19 Range/Units 14:25 Magnesium 2.5 H (1.6-2.3) mg/dL Microbiology - Last 24 Hours (Table) 09/25/19 16:10 Blood Culture - Preliminary Blood No Growth after 72 hours 09/25/19 16:15 Blood Culture - Preliminary Blood No Growth after 72 hours <Tej Fuentes - Last Filed: 09/29/19 14:23> Subjective As above. Patient doing well. No pain. JEFF drain removed. Follow-up one week. Objective - Vital Signs Vital signs: Vital Signs Temp 98.1 F 09/29/19 08:00 Pulse 80 09/29/19 08:00 Resp 18 09/29/19 08:00 BP 174/91 09/29/19 08:00 Pulse Ox 97 09/29/19 08:00 Intake & Output 09/28/19 09/29/19 09/29/19 18:59 06:59 18:59 Intake Total 1470 150 240 Output Total 540 10 Balance 1470 -390 230 Weight 54.7 kg Intake: Intake, IV Titration 750 150 Amount Magnesium Sulfate-D5w Pmx 200 1 gm In Dextrose/Water 1 100ml.bag @ 100 mls/hr IVPB Q1H [facility] Rx#: [id number] Piperacillin-Tazobactam 3 100 .375 gm In Sodium Chloride 0.9% 100 ml @ 25 mls/hr IVPB Q8HR [facility] Rx# :[id number] Sodium Chloride 0.9% 1, 450 150 000 ml @ 75 mls/hr IV . [id number] [facility] Rx#:[id number] Oral 720 240 Output: Drainage 40 10 Right Lower Abdomen 40 10 Urine 500 Other: Voiding Method Toilet Toilet # Voids 2 - Labs CBC & Chem 7: 09/28/19 05:57 09/28/19 14:25 Labs: Abnormal Lab Results - Last 24 Hours (Table) 09/28/19 Range/Units 14:25 Magnesium 2.5 H (1.6-2.3) mg/dL Microbiology - Last 24 Hours (Table) 09/25/19 16:10 Blood Culture - Preliminary Blood No Growth after 72 hours 09/25/19 16:15 Blood Culture - Preliminary Blood No Growth after 72 hours Assessment and Plan (1) Acute cholecystitis Current Visit: Yes Status: Acute Code(s): K81.0 - ACUTE CHOLECYSTITIS SNOMED Code(s): 09288099
[2019-09-29] MEDS: SODIUM CHLORIDE 0.9% 1,000 ML IV SCH (13:21)
--- NOTE | 2019-09-29 14:19 | PN ---
PROGRESS NOTE DATE OF SERVICE: 09/29/2019 REASON FOR FOLLOWUP: Acute cholecystitis. INTERVAL HISTORY: The patient is currently afebrile. The patient has been breathing comfortably. The patient denies having any chest pain. No shortness of breath, no cough. No nausea, no vomiting. No abdominal pain and no diarrhea. PHYSICAL EXAMINATION: Blood pressure 124/91 with a pulse of 80, temperature 98.1, she is 97% on room air. General description is an elderly female, lying in bed in no distress. RESPIRATORY SYSTEM: Unlabored breathing, clear to auscultation anteriorly. HEART: S1, S2. Regular rate and rhythm. ABDOMEN: Soft, no tenderness. EXTREMITIES: No edema of the feet. LABS: No new labs have been obtained today. DIAGNOSTIC IMPRESSION AND PLAN: Patient with acute cholecystitis, status post open cholecystectomy, normal culture positive for E coli which is a sensitive pathogen. Patient will finish therapy with oral Augmentin. Prescription will be sent to pharmacy and follow up in the office in one week. Continue supportive care. MMODL / IJN: [id number] /
[2019-09-29 14:25] VITALS: BMI 20.7
== END 2019-09-29 16:05 | disposition home or self-care (01) | DRG 854 ==
LOC: EC 19:28 → 3SCARD 22:27
PROVIDERS: ADMIT Family Medicine; ATTEND Family Medicine
PROC: B2111ZZ Fluoroscopy of Multiple Coronary Arteries using Low Osmolar Contrast (ICD-10-PCS; 2019-09-24)
PROC: 4A023N7 Measurement of Cardiac Sampling and Pressure, Left Heart, Percutaneous Approach (ICD-10-PCS; 2019-09-24)
PROC: 0WJG4ZZ Inspection of Peritoneal Cavity, Percutaneous Endoscopic Approach (ICD-10-PCS; principal; 2019-09-25 09:15)
PROC: 0FT40ZZ Resection of Gallbladder, Open Approach (ICD-10-PCS; principal; 2019-09-25 09:15)
DX: A41.51 Sepsis due to Escherichia coli [E. coli] (principal); K80.00 Calculus of gallbladder with acute cholecystitis without obstruction; K82.1 Hydrops of gallbladder; N13.39 Other hydronephrosis; I10 Essential (primary) hypertension; E83.42 Hypomagnesemia; N20.0 Calculus of kidney; E87.6 Hypokalemia; E03.9 Hypothyroidism, unspecified; I27.20 Pulmonary hypertension, unspecified; I08.1 Rheumatic disorders of both mitral and tricuspid valves; R79.89 Other specified abnormal findings of blood chemistry; R94.31 Abnormal electrocardiogram [ECG] [EKG]; Z79.890 Hormone replacement therapy; Z79.899 Other long term (current) drug therapy; Z90.710 Acquired absence of both cervix and uterus; Z98.890 Other specified postprocedural states; Z53.31 Laparoscopic surgical procedure converted to open procedure
CPT/HCPCS: 36415; 71046; 74176; 76705; 80048; 80053; 80061; 81001; 82150; 83690; 83735; 84132; 84484; 85025; 85027; 85610; 85730; 87040; 87070; 87075; 87077; 87186; 87205; 87324; 88304; 93005; 93306; 93458; 96361; 96374; 96375; 99285

== ENCOUNTER → 2021-01-02 | Outpatient (CLI) | payer MEDICARE ==
--- NOTE | 2021-01-03 13:51 | MM ---
Reason for exam: screening (asymptomatic). Last mammogram was performed 2 years and 1 month ago. History: Patient is postmenopausal. Family history of breast cancer in sister at age 58. Excisional biopsy of the left breast, 1989. Taking other hormone. Physical Findings: A clinical breast exam by your physician is recommended on an annual basis and results should be correlated with mammographic findings. MG 3D Screening Mammo W/Cad Bilateral CC and MLO view(s) were taken. Prior study comparison: December 17, 2018, mammogram, performed at [facility]. November 06, 2017, mammogram, performed at [facility]. The breast tissue is heterogeneously dense. This may lower the sensitivity of mammography. No significant changes when compared with prior studies. ASSESSMENT: Benign, BI-RAD 2 RECOMMENDATION: Routine screening mammogram of both breasts in 1 year.
== END | disposition home or self-care (01) ==
LOC: RADMAMWWP 14:47
PROVIDERS: ATTEND Family Medicine
DX: Z12.31 Encounter for screening mammogram for malignant neoplasm of breast (principal)
CPT/HCPCS: 77063; 77067

== ENCOUNTER 2021-08-24 12:15 | Emergency (ER) | payer MEDICARE ==
[2021-08-24] MEDS ORDERED: DIAZEPAM 5 MG/ML 2 ML INJ IVP STA (12:54)
--- NOTE | 2021-08-24 13:29 | ED ---
Dizziness HPI - General Chief Complaint: Dizziness Stated Complaint: Vertigo Time Seen by Provider: 08/24/21 12:20 Source: patient Mode of arrival: ambulatory Limitations: no limitations - History of Present Illness Initial Comments: Patient is a 71-year-old female who presents to the emergency room with reported vertigo symptoms. Patient states she has suffered from vertigo since 1998. Had very infrequent episodes up until this year. States that she has seen Dr. Olguin twice this year for these symptoms. She was referred to ENT and is currently following with Dr. Woodward. Has a balance test next week. States that her current episode started 6 days ago. She awoke one morning with sensation the room was spinning. It is worse with positional changes. Makes her feel nauseated. She did take meclizine on the first day with some improvement in her symptoms. States that over the subsequent days she was taking Claritin daily because she did not want to take the meclizine. She states her symptoms were getting better however she woke this morning and then became worse again. She denies a headache. No visual changes. No numbness, tingling, weakness in her tremors. No facial droop or speech difficulties. Denies neck pain, fevers or chills. No chest pain or shortness of breath. No history of stroke. No recent head trauma. No other alleviating, precipitating or modifying factors - Related Data Home Medications Medication Instructions Recorded Confirmed Levothyroxine Sodium 25 mcg PO DAILY 09/23/19 08/24/21 Cholecalciferol (Vitamin D3) 125 mcg PO DAILY 08/24/21 08/24/21 [Vitamin D3 (125 MCG = 5,000 IU)] Latanoprost/Pf [Latanoprost 0.005% 1 drop LEFT EYE HS 08/24/21 08/24/21 Eye Drop] Multivitamins, Thera [Multivitamin 1 tab PO DAILY 08/24/21 08/24/21 (formulary)] Previous Rx's Medication Instructions Recorded Losartan [Cozaar] 50 mg PO DAILY #60 tab 09/29/19 Allergies Allergy/AdvReac Type Severity Reaction Status Date / Time No Known Allergies Allergy Verified 08/24/21 14:33 Review of Systems ROS Statement: Those systems with pertinent positive or pertinent negative responses have been documented in the HPI. ROS Other: All systems not noted in ROS Statement are negative. Past Medical History Past Medical History: Hypertension, Thyroid Disorder Additional Past Medical History / Comment(s): vertigo History of Any Multi-Drug Resistant Organisms: None Reported Past Surgical History: Hysterectomy Additional Past Surgical History / Comment(s): left lumpectomy Past Psychological History: No Psychological Hx Reported Smoking Status: Never smoker Past Alcohol Use History: Occasional Past Drug Use History: None Reported General Exam Limitations: no limitations Course Vital Signs 08/24/21 08/24/21 08/24/21 12:21 14:00 14:51 Temperature 98.4 F Pulse Rate 95 77 69 Pulse Rate [ Sitting] Pulse Rate [ Standing] Pulse Rate [ Supine] Respiratory 18 18 18 Rate Blood Pressure 166/68 163/83 166/84 Blood Pressure [Sitting] Blood Pressure [Standing] Blood Pressure [Supine] O2 Sat by Pulse 98 98 Oximetry 08/24/21 08/24/21 15:23 16:14 Temperature 97.6 F Pulse Rate 70 Pulse Rate [ 83 Sitting] Pulse Rate [ 88 Standing] Pulse Rate [ 85 Supine] Respiratory 16 Rate Blood Pressure 168/78 Blood Pressure 175/93 [Sitting] Blood Pressure 178/96 [Standing] Blood Pressure 165/85 [Supine] O2 Sat by Pulse 98 Oximetry - Reevaluation(s) Reevaluation #1: 08/24/21 15:22 awaiting callback from Yazmin Olguin [employer]. EKG Findings - EKG Comments: EKG Findings:: EKG demonstrates normal sinus rhythm with a ventricular rate of 79. OK interval 142. QRS 90. QTC 399. Some mild ST depression in 2, 3 and aVF as well as the 3 through V6. Some baseline artifact. No acute ST segment elevation. This is similar morphology from EKG completed in 2019 Medical Decision Making - Medical Decision Making Upon arrival the patient is placed in room 22. Thorough history and physical exam was performed. Patient placed on continuous pulse ox and cardiac monitoring. 12-lead EKG was performed IV established and laboratory studies were conducted. Patient was given 2 mg of Valium for her symptoms. Patient went for a CT of her brain as well as CT angiography. Laboratory studies are reviewed and are all within normal limits. Chest x-ray demonstrates no acute cardiopulmonary process. CT of the brain demonstrates chronic small vessel ischemic disease without acute intracranial process. CT angiography of the brain does not demonstrate any significant diameter reduction. I did call and speak with Dr. Olguin in regards to the patient's symptoms and workup. Patient is reevaluated and reports improvement in her symptoms at this time. She will be discharged home. Strict return parameters are discussed. She is instructed to take the meclizine up to 3 times daily for her symptoms and return to the emergency room for any new or worsening symptoms. She needs to see Dr. Woodward next week for her balance test. She needs to follow-up with Dr. Olguin in office next week. Instructed to keep a blood pressure log and follow up with Dr. Olguin for possible medication changes. Patient was discharged home in stable condition - Lab Data Result diagrams: 08/24/21 12:59 08/24/21 12:59 Lab Results 08/24/21 08/24/21 08/24/21 Range/Units 12:59 12:59 12:59 WBC 7.9 (3.8-10.6) k/uL RBC 4.62 (3.80-5.40) m/uL Hgb 14.8 (11.4-16.0) gm/dL Hct 43.1 (34.0-46.0) % MCV 93.2 (80.0-100.0) fL MCH 32.1 (25.0-35.0) pg MCHC 34.4 (31.0-37.0) g/dL RDW 12.2 (11.5-15.5) % Plt Count 238 (150-450) k/uL MPV 7.2 Neutrophils % 66 % Lymphocytes % 25 % Monocytes % 5 % Eosinophils % 1 % Basophils % 0 % Neutrophils # 5.2 (1.3-7.7) k/uL Lymphocytes # 2.0 (1.0-4.8) k/uL Monocytes # 0.4 (0-1.0) k/uL Eosinophils # 0.1 (0-0.7) k/uL Basophils # 0.0 (0-0.2) k/uL PT 10.1 (9.0-12.0) sec INR 0.9 (<1.2) APTT 23.7 (22.0-30.0) sec Sodium 138 (137-145) mmol/L Potassium 4.2 (3.5-5.1) mmol/L Chloride 108 H (98-107) mmol/L Carbon Dioxide 24 (22-30) mmol/L Anion Gap 6 mmol/L BUN 14 (7-17) mg/dL Creatinine 0.49 L (0.52-1.04) mg/dL Est GFR (CKD-EPI)AfAm >90 (>60 ml/min/1.73 sqM) Est GFR (CKD-EPI)NonAf >90 (>60 ml/min/1.73 sqM) Glucose 116 H (74-99) mg/dL Calcium 9.2 (8.4-10.2) mg/dL Total Bilirubin 0.6 (0.2-1.3) mg/dL AST 28 (14-36) U/L ALT 17 (4-34) U/L Alkaline Phosphatase 77 (38-126) U/L Troponin I (0.000-0.034) ng/mL Total Protein 7.1 (6.3-8.2) g/dL Albumin 4.1 (3.5-5.0) g/dL TSH 1.420 (0.465-4.680) mIU/L 08/24/21 Range/Units 12:59 WBC (3.8-10.6) k/uL RBC (3.80-5.40) m/uL Hgb (11.4-16.0) gm/dL Hct (34.0-46.0) % MCV (80.0-100.0) fL MCH (25.0-35.0) pg MCHC (31.0-37.0) g/dL RDW (11.5-15.5) % Plt Count (150-450) k/uL MPV Neutrophils % % Lymphocytes % % Monocytes % % Eosinophils % % Basophils % % Neutrophils # (1.3-7.7) k/uL Lymphocytes # (1.0-4.8) k/uL Monocytes # (0-1.0) k/uL Eosinophils # (0-0.7) k/uL Basophils # (0-0.2) k/uL PT (9.0-12.0) sec INR (<1.2) APTT (22.0-30.0) sec Sodium (137-145) mmol/L Potassium (3.5-5.1) mmol/L Chloride (98-107) mmol/L Carbon Dioxide (22-30) mmol/L Anion Gap mmol/L BUN (7-17) mg/dL Creatinine (0.52-1.04) mg/dL Est GFR (CKD-EPI)AfAm (>60 ml/min/1.73 sqM) Est GFR (CKD-EPI)NonAf (>60 ml/min/1.73 sqM) Glucose (74-99) mg/dL Calcium (8.4-10.2) mg/dL Total Bilirubin (0.2-1.3) mg/dL AST (14-36) U/L ALT (4-34) U/L Alkaline Phosphatase (38-126) U/L Troponin I <0.012 (0.000-0.034) ng/mL Total Protein (6.3-8.2) g/dL Albumin (3.5-5.0) g/dL TSH (0.465-4.680) mIU/L Disposition Clinical Impression: Vertigo Disposition: HOME SELF-CARE Condition: Stable Instructions (If sedation given, give patient instructions): Dizziness (ED) Additional Instructions: Please follow up with Dr. Aparicio next week. Take the Meclizine three times daily as needed. Keep a log of your blood pressures. Return to the ED for any new or worsening symptoms. Is patient prescribed a controlled substance at d/c from ED?: No Referrals: Dung Olguin DO [Primary Care Provider] - 1-2 days Konrad Aparicio DO [Doctor of Osteopathic Medicine] - 1-2 days Time of Disposition: 15:40
[2021-08-24 13:39] LABS: ALT 17 U/L (4-34); AST 28 U/L (14-36); African American GFR (CKD) >90 (>60 ml/min/1.73 sqM); Albumin 4.1 g/dL (3.5-5.0); Alkaline Phosphatase 77 U/L (38-126); Anion Gap 6 mmol/L; Blood Urea Nitrogen 14 mg/dL (7-17); Calcium 9.2 mg/dL (8.4-10.2); Carbon Dioxide 24 mmol/L (22-30); Chloride 108 mmol/L (98-107); Glucose 116 mg/dL (74-99); Non-African American GFR(CKD) >90 (>60 ml/min/1.73 sqM); Potassium 4.2 mmol/L (3.5-5.1); Sodium 138 mmol/L (137-145); Total Bilirubin 0.6 mg/dL (0.2-1.3); Total Protein 7.1 g/dL (6.3-8.2)
[2021-08-24 13:45] LABS: INR 0.9 (<1.2); Partial Thromboplastin Time 23.7 sec (22.0-30.0); Prothrombin Time 10.1 sec (9.0-12.0)
[2021-08-24 13:46] LABS: Basophils % (A) 0 %; Eosinophils # (A) 0.1 k/uL (0-0.7); Eosinophils % (A) 1 %; HCT 43.1 % (34.0-46.0); HGB 14.8 gm/dL (11.4-16.0); Lymphocytes % (A) 25 %; MCH 32.1 pg (25.0-35.0); MCHC 34.4 g/dL (31.0-37.0); MCV 93.2 fL (80.0-100.0); Mean Platelet Volume 7.2; Monocytes # (A) 0.4 k/uL (0-1.0); Monocytes % (A) 5 %; Neutrophils # (A) 5.2 k/uL (1.3-7.7); Neutrophils % (A) 66 %; Platelet Count 238 k/uL (150-450); RBC 4.62 m/uL (3.80-5.40); RDW 12.2 % (11.5-15.5); WBC 7.9 k/uL (3.8-10.6)
--- NOTE | 2021-08-24 14:01 | XR ---
EXAMINATION TYPE: XR chest 2V DATE OF EXAM: 08/24/2021 COMPARISON: Chest x-ray 09/23/2019 HISTORY: Vertigo, abnormal chest x-ray TECHNIQUE: Frontal and lateral views of the chest are obtained. FINDINGS: There is no focal air space opacity, pleural effusion, or pneumothorax seen, minimal blunt ing the left costophrenic angle is stable, likely due to chronic pleural reaction. The cardiac silho uette size is within normal limits. Biapical pleural thickening is stable. There is a spinal curvatur e, overlying leads. The osseous structures are intact. IMPRESSION: No acute cardiopulmonary process.
--- NOTE | 2021-08-24 14:33 | CT ---
EXAMINATION TYPE: CT brain wo con DATE OF EXAM: 08/24/2021 COMPARISON: None HISTORY: Vertigo x [address] DLP: 1463.[address] of the brain was performed. The ventricles, basal cisterns and sulci overlying the cerebral convexities demonstrate mild enlargem ent. There is no evidence for intracranial hemorrhage or sulcal effacement. There is decreased attenuation about the periventricular white matter and deep white matter of both c erebral hemispheres, compatible with chronic small vessel ischemia. Differential diagnosis does inclu de demyelination. No mass effects are seen.No midline shift. Osseous calvarium is intact. If symptoms persist consider MRI. IMPRESSION: 1. Age related atrophic and chronic small vessel ischemic change without acute intracranial process s een at this time.
--- NOTE | 2021-08-24 15:04 | CT ---
EXAMINATION TYPE: CT angio head neck DATE OF EXAM: 08/24/2021 COMPARISON: None HISTORY: Vertigo x [address] DLP: 1463.63 mGycm CONTRAST: Performed without and with IV Contrast, patient injected with 65 ml mL of Isovue 370. Combination Contrast CTA cervical carotids and [place] CTA cervical carotids with 3-D recons truction Contrast CTA of the cervical carotids was performed 3-D reconstruction imaging obtained at a separate workstation. Right carotid system: Mild plaque is seen of the right common carotid artery. There is mild plaque a lso noted at the carotid bulb and proximal ICA. No significant diameter reduction. ECA is patent. Right vertebral artery appears unremarkable. Left carotid system: Mild plaque is seen of the left common carotid artery. There is mild plaque als o noted at the carotid bulb and proximal ICA. No significant diameter reduction. ECA is patent. Lef t vertebral artery appears unremarkable. IMPRESSION: 1. No significant diameter reduction to account for the patient's symptoms. CTA [place] with 3-D reconstruction Contrast CTA of the [place] was performed 3-D reconstruction imaging obtained at a separate workstation. Vertebrobasilar system as well as intracranial portions of the internal carotid arteries and their ma erica tributaries are patent. I do not see evidence for sizable aneurysm or vascular malformation. Pl ease note MRI provides greater sensitivity and specificity. Visualized brain appears grossly unremar kable. IMPRESSION: 1. No significant abnormality. NASCET criteria was used in interpretation of this exam?
[2021-08-24 16:17] VITALS: BP 168/78; PULSE 70; RESP 16; TEMP 97.6
== END 2021-08-24 16:13 | disposition home or self-care (01) ==
LOC: EC 12:15
DX: R42 Dizziness and giddiness (principal); I10 Essential (primary) hypertension; E07.9 Disorder of thyroid, unspecified; Z90.710 Acquired absence of both cervix and uterus
CPT/HCPCS: 99284 ×2; 96374 ×2; 36415; 93005; 80053; 84443; 84484; 85025; 85610; 85730; 71046; 70496; 70450; 70498; J3360; Q9967

== ENCOUNTER → 2022-04-16 | Outpatient (CLI) | payer MEDICARE ==
--- NOTE | 2022-04-18 10:48 | MM ---
Reason for Exam: Screening (asymptomatic). Last mammogram was performed 1 year(s) and 3 month(s) ago. Patient History: Menarche at age 14. First Full-Term at age 22. Hysterectomy at age 26. Postmenopausal. 1989, Excisional Biopsy on the Left side. Sister had breast cancer, age 58. Risk Values: Sapna 5 year model risk: 3.9%. NCI Lifetime model risk: 11.1%. Film Views: Bilateral CC views were taken. Bilateral MLO views were taken. Prior Study Comparison: 11/06/2017 Screening Mammogram, [facility]. 12/17/2018 Screening Mammogram, [facility]. 01/02/2021 Bilateral Screening Mammogram, [facility]. Tissue Density: The breast tissue is heterogeneously dense. This may lower the sensitivity of mammography. Findings: Analyzed By CAD. No significant changes when compared with prior studies. Chronic nodularity in the right posterior upper outer quadrant. Overall Assessment: Benign, BI-RAD 2 Management: Screening Mammogram of both breasts in 1 year.
== END | disposition home or self-care (01) ==
LOC: RADMAMWWP 13:54
PROVIDERS: ATTEND Family Medicine
DX: Z12.31 Encounter for screening mammogram for malignant neoplasm of breast (principal); Z78.0 Asymptomatic menopausal state; Z80.3 Family history of malignant neoplasm of breast
CPT/HCPCS: 77063; 77067

== ENCOUNTER → 2022-08-20 | Outpatient (CLI) | payer MEDICARE ==
[2022-08-20 18:21] LABS: T4, Free (Free Thyroxine) 1.18 ng/dL (0.800-1.800)
--- NOTE | 2022-08-21 10:23 | US ---
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 Patient on levothyroxine. Hx FNA left side. GLAND SIZE: Right Lobe: 4.9 x 1.7 x 1.6 cm Overall Parenchyma: heterogenous Left Lobe: 5.6 x 1.5 2.8 cm Overall Parenchyma: heterogeneous Isthmus Thickness: 0.48 cm NODULES RIGHT: # of nodules measured on right: 1 1. 1.2 X 1.0 x 0.7 cm, lower medial,. Prior size: No prior TIRADS Score: 3 TIRADS Category 3: Mildly Suspicious Composition: Solid or almost completely solid (2 points). Echogenicity: Hyperechoic or isoechoic (1 point). Shape: Wider than tall (0 points). Margin: Ill-defined (0 points). Echogenic foci: None or large comet-tail artifacts (0 points) Recommendation: If >2.5cm: FNA; If >1.5cm: Follow up at 1,3,5 years LEFT: # of nodules measured on left: 1. 3.2 X 2.4 x 1.9 cm, lower lateral, Prior size: No prior TIRADS Score: 3 TIRADS Category 3: Mildly Suspicious Composition: Solid or almost completely solid (2 points). Echogenicity: Hyperechoic or isoechoic (1 point). Shape: Wider than tall (0 points). Margin: Ill-defined (0 points). Echogenic foci: None or large comet-tail artifacts (0 points) Recommendation: If >2.5cm: FNA; If >1.5cm: Follow up at 1,3,5 years 2. 1.9 X 1.6 x 1.4 cm, lower mid, Prior size: No prior TIRADS Score: 3 TIRADS Category 3: Mildly Suspicious Composition: Solid or almost completely solid (2 points). Echogenicity: Hyperechoic or isoechoic (1 point). Shape: Wider than tall (0 points). Margin: Ill-defined (0 points). Echogenic foci: None or large comet-tail artifacts (0 points) Recommendation: If >2.5cm: FNA; If >1.5cm: Follow up at 1,3,5 years 3. 1.8 X 1.4 x 1.0 cm, upper medial, Prior size: No prior TIRADS Score: 3 TIRADS Category 3: Mildly Suspicious Composition: Solid or almost completely solid (2 points). Echogenicity: Hyperechoic or isoechoic (1 point). Shape: Wider than tall (0 points). Margin: Ill-defined (0 points). Echogenic foci: None or large comet-tail artifacts (0 points) Recommendation: If >2.5cm: FNA; If >1.5cm: Follow up at 1,3,5 years ISTHMUS: # of nodules measured in the isthmus: 1 1. Isthmus/Right: 1.6 X 1.8 x 0.9 cm . Prior size: No prior TIRADS Score: 3 TIRADS Category 3: Mildly Suspicious Composition: Solid or almost completely solid (2 points). Echogenicity: Hyperechoic or isoechoic (1 point). Shape: Wider than tall (0 points). Margin: Ill-defined (0 points). Echogenic foci: None or large comet-tail artifacts (0 points) Recommendation: If >2.5cm: FNA; If >1.5cm: Follow up at 1,3,5 years Bilateral neck scanned, no evidence of lymphadenopathy. IMPRESSION: Bilateral thyroid nodules that are TIRADS Category 3: Mildly Suspicious. A 3.2 cm nodule in the left thyroid gland meets criteria for fine-needle aspiration if not already performed.
== END | disposition home or self-care (01) ==
LOC: RADUSWWP 12:14
PROVIDERS: ATTEND Internal Medicine Endocrinology, Diabetes & Metabolism
DX: E04.2 Nontoxic multinodular goiter (principal)
CPT/HCPCS: 76536; 84439; 84443

== ENCOUNTER → 2023-03-26 | Outpatient (CLI) | payer MEDICARE ==
[2023-03-26 20:29] LABS: T4, Free (Free Thyroxine) 1.58 ng/dL (0.800-1.800)
== END | disposition home or self-care (01) ==
LOC: LABWHC1 14:26
PROVIDERS: ATTEND Internal Medicine Endocrinology, Diabetes & Metabolism
DX: E04.2 Nontoxic multinodular goiter (principal)
CPT/HCPCS: 36415; 84439; 84443

== ENCOUNTER → 2023-06-26 | Outpatient (CLI) | payer MEDICARE ==
--- NOTE | 2023-06-26 15:07 | USB ---
Reason for Exam: Additional evaluation requested from abnormal screening. Patient History: Menarche at age 14. First Full-Term at age 22. Hysterectomy at age 26. Postmenopausal. Patient used Hormonal Contraceptives for 3 years. 1989, Excisional Biopsy on the Left side. Sister had breast cancer, age 58. Risk Values: Sapna 5 year model risk: 4.0%. NCI Lifetime model risk: 10.1%. Technique: Method: Targeted. Prior Study Comparison: 01/02/2021 Bilateral Screening Mammogram, [facility]. 04/16/2022 Bilateral MG 3D screening mammo w/cad, [facility]. 06/24/2023 Bilateral MG 3D screening mammo w/cad, [facility]. Findings: The lower outer quadrant of the left breast, the axilla of the left breast and the retroareolar of the left breast were scanned. Imaged: Ultrasound imaging of: All 4 quadrants, the retroareolar region and axilla. Scattered anechoic cysts. The largest at 3:00 7 cm from nipple measuring 6 x 4 x 5 mm. Additional 6:00 4 submitted images from nipple 4 mm cyst also present. No evidence for organizing fluid collection or mass. Overall Assessment: Benign, BI-RAD 2 Management: Screening Mammogram of both breasts in 1 year. A clinical breast exam by your physician is recommended on an annual basis and results should be correlated with mammographic findings. This exam should not preclude additional follow-up of suspicious palpable abnormalities. Results were given to the patient verbally at the time of exam. Electronically signed and approved by: Ivan Marmolejo DO
== END | disposition home or self-care (01) ==
LOC: RADUSWWP 14:10
PROVIDERS: ATTEND Family Medicine
DX: R92.8 Other abnormal and inconclusive findings on diagnostic imaging of breast (principal); Z78.0 Asymptomatic menopausal state

== ENCOUNTER → 2024-02-06 | Outpatient (CLI) | payer MEDICARE ==
[2024-02-06 16:05] LABS: Blood Urea Nitrogen 14.4 mg/dL (9.0-27.0); Chloride 105 mmol/L (96-109); Chol/HDL Ratio 3.49 Ratio; Glucose 108 mg/dL (70-110); LDL Cholesterol,Calculated 107.8 mg/dL (0.0-131.0); Magnesium 2.1 mg/dL (1.5-2.4); Potassium 4.3 mmol/L (3.5-5.5); Sodium 141 mmol/L (135-145)
[2024-02-06 16:06] LABS: ALT 16 U/L (8-44); AST 23 U/L (13-35); Albumin 4.3 g/dL (3.8-4.9); Albumin/Globulin Ratio 1.72 Ratio (1.60-3.17); Alkaline Phosphatase 108 U/L (41-126); Bilirubin, Conjugated <0.20 mg/dL (0.20-0.40); Calcium 9.3 mg/dL (8.7-10.3); Carbon Dioxide 26.3 mmol/L (21.6-31.8); Globulin 2.5 g/dL (1.6-3.3); Total Bilirubin 0.4 mg/dL (0.3-1.2); Total Protein 6.8 g/dL (6.2-8.2)
[2024-02-06 16:19] LABS: Bilirubin,Unconjugated >0.2 mg/dL (0.2-1.0)
[2024-02-06 17:01] LABS: HCT 42.9 % (37.2-46.3); MCH 31.5 pg (27.0-32.0); MCHC 32.6 g/dL (32.0-37.0); MCV 96.6 FL (80.0-97.0); Mean Platelet Volume 10.1 FL (9.5-12.2); NRBC Per 100 WBC 0 X 10*3/uL (0.00-0.01); Platelet Count 205 X 10*3/uL (140-440); RBC 4.44 X 10*6/uL (4.10-5.20); RDW 11.8 % (11.5-14.5); WBC 4.88 X 10*3/uL (4.50-10.00)
== END | disposition home or self-care (01) ==
LOC: LABWHC1 09:41
PROVIDERS: ATTEND Nurse Practitioner Family
DX: I10 Essential (primary) hypertension (principal); I49.3 Ventricular premature depolarization; E03.9 Hypothyroidism, unspecified; E78.5 Hyperlipidemia, unspecified
CPT/HCPCS: 36415; 80053; 80061; 82248; 83735; 84443; 85027

== ENCOUNTER → 2025-03-09 | Outpatient (CLI) | payer MEDICARE ==
--- NOTE | 2025-03-09 15:48 | MM ---
Reason for Exam: Screening (asymptomatic). Last mammogram was performed 1 year(s) and 9 month(s) ago. Patient History: Menarche at age 14. First Full-Term at age 22. Hysterectomy at age 26. Postmenopausal. Patient used Hormonal Contraceptives for 3 years. 1989, Excisional Biopsy on the Left side. Sister had breast cancer, age 58. Risk Values: Sapna 5 year model risk: 4.0%. NCI Lifetime model risk: 9.6%. Prior Study Comparison: 01/02/2021 Bilateral Screening Mammogram, [facility]. 04/16/2022 Bilateral MG 3D screening mammo w/cad, [facility]. 06/24/2023 Bilateral MG 3D screening mammo w/cad, [facility]. Tissue Density: The breasts are heterogeneously dense, which may obscure small masses. Findings: Analyzed By CAD. Few scattered punctate calcifications on the left are unchanged. There is no suspicious group of microcalcifications or new suspicious mass in either breast. Overall Assessment: Benign, BI-RAD 2 Management: Screening Mammogram of both breasts in 1 year. See note below in regards to the patient's increased 5 year Sapna score. Patient should continue monthly self-breast exams. A clinical breast exam by your physician is recommended on an annual basis. This exam should not preclude additional follow-up of suspicious palpable abnormalities. Note on Sapna scores and lifetime risk: 1. A Sapna score greater than 3% is considered moderate risk. If this is the case, consider specialist referral to assess eligibility for a risk reducing agent. 2. If overall lifetime risk for the development of breast cancer is 20% or higher, the patient may qualify for future screening with alternating mammogram and breast MRI. [facility], , 03/09/2025 3:46 PM. Electronically signed and approved by: Vannessa Watts M.D. Radiologist
== END | disposition home or self-care (01) ==
LOC: RADMAMWWP 12:55
PROVIDERS: ATTEND Family Medicine
DX: Z12.31 Encounter for screening mammogram for malignant neoplasm of breast (principal); R92.333 Mammographic heterogeneous density, bilateral breasts; Z78.0 Asymptomatic menopausal state; Z92.0 Personal history of contraception; Z80.3 Family history of malignant neoplasm of breast
CPT/HCPCS: 77063; 77067